=== PATIENT | male | born 1970 | race Caucasian/White ===

== ENCOUNTER 2017-02-26 15:27 | Inpatient (IN) ==
[2017-02-26] MEDS ORDERED: 0.9 % Sodium Chloride 1,000 ML IVC ONE (15:36)
[2017-02-26] MEDS ORDERED: Vancomycin 1,000 MG VIAL IVPB ONE (15:36)
[2017-02-26] MEDS ORDERED: Ampicillin/Sulbactam 3,000 MG in D5% in Water (Mini-Bag+) 100 ML IVPB ONE (15:36)
[2017-02-26] MEDS ORDERED: 0.9 % Sodium Chloride 500 ML IV.SOLN IVC ONE (15:43)
--- NOTE | 2017-02-26 15:58 | Emergency Department Note ---
Disposition Clinical Impression: Cellulitis of hand, Flexor tenosynovitis of thumb Disposition: Admitted As Inpatient Condition: Good [facility] Provider[facility] - Forms: ED Satisfaction Letter Time of Disposition: 18:47 Extremity Problem HPI - General Chief complaint: ED Extremity Problem,Nontraumatic Stated complaint: Left Hand Infection[facility] Time Seen by Provider: 02/26/17 15:31 Source: patient, EMS Mode of arrival: EMS Limitations: no limitations Nursing Notes Reviewed: Yes Vital Signs Reviewed: Yes - History of Present Illness HPI Narrative: Patient presents to the ED as a transfer from the [place] with a left hand infection. Patient reports that he cut the palmar aspect of his thumb on a old metal broom 4 days ago. He went into urgent care 2 days ago, got an antibiotic shot and was sent home. Since then and is rapidly progressed. Reports he went to the [place] clinic today, had labs drawn and was sent over here for surgical evaluation. He complains of fevers up to 102.5, nausea, intermittent vomiting, pain is mostly in his left hand and forearm, but is tracking up into his biceps. Also complains of diffuse abdominal pain but no difference than baseline. Does have a history of hep C, previous IV drug use with last use about 10 years ago. Pain Scale: 5 - Related Data Home Medications Medication Instructions Recorded Confirmed Buspirone HCl [Buspar] 15 mg PO TID 02/26/17 02/26/17 Carboxymethylcellulose Sodium 1 drop BOTH EYES TID 02/26/17 02/26/17 [Refresh Liquigel] Chlorhex Gl/Glycerin/He-Cell 6 gm TP AD 02/26/17 02/26/17 [Lubricating Jelly] Doxycycline Monohydrate [Avidoxy] 100 mg PO BID 02/26/17 02/26/17 Gabapentin [Neurontin] 900 mg PO TID 02/26/17 02/26/17 Levothyroxine [Synthroid] 50 mcg PO 0630 02/26/17 02/26/17 Lidocaine/Prilocaine CREAM [Emla] 1 appl TP QID PRN 02/26/17 Lisinopril [Zestril] 40 mg PO DAILY 02/26/17 02/26/17 Methadone 5 mg PO AD 02/26/17 02/26/17 Methylphenidate HCl [Ritalin] 10 mg PO 1200 02/26/17 02/26/17 Methylphenidate HCl [Ritalin] 20 mg PO QAM 02/26/17 02/26/17 Montelukast [Singulair] 10 mg PO DAILY 02/26/17 02/26/17 Mupirocin [Bactroban Oint] 1 appl TP TID 02/26/17 02/26/17 Naproxen [Naprosyn] 500 mg PO BID PRN 02/26/17 02/26/17 Lee/Poly/DEX Opth OINT [Maxitrol 1 appl OP AD 02/26/17 02/26/17 OPTH Oint] Omeprazole [PriLOSEC] 40 mg PO DAILY 02/26/17 02/26/17 Paroxetine [Paxil] 60 mg PO QAM 02/26/17 Pravastatin Sodium [Pravachol] 40 mg PO HS 02/26/17 02/26/17 Selenium Sulfide 1 appl TP DAILY 02/26/17 02/26/17 Sildenafil Citrate [Viagra] 50 mg PO AD PRN 02/26/17 02/26/17 Triamcinolone Acet 0.1% OINT 1 appl TP BID PRN 02/26/17 [Kenalog] clonazePAM [Klonopin] 0.5 mg PO BID 02/26/17 02/26/17 Allergies Allergy/AdvReac Type Severity Reaction Status Date / Time bupropion [From Wellbutrin] Allergy Hives Verified 02/26/17 15:36 Oxycodone Allergy Hives Verified 02/26/17 16:18 tramadol Allergy Hives Verified 02/26/17 15:36 All systems ED: reviewed and negative except as stated. Constitutional: Reports: fever, chills Cardiovascular: Denies: syncope Respiratory: Reports: dyspnea Gastrointestinal: Reports: abdominal pain, nausea, vomiting Musculoskeletal: Reports: as per HPI. Denies: back pain Integumentary: Reports: as per HPI Neurological: Reports: headache Past Medical History - Past Medical History Attestation: Yes The following information was validated with the patient. Source: patient Medical history: Reports: hepatitis Psychiatric history: Reports: no psych history - Social History Smoking Status: Current every day smoker Smokeless Tobacco Status: Yes (vapor) Alcohol use: Reports: none Drug use: Reports: none Physical Exam - General Limitations: no limitations General appearance: alert, in no apparent distress - Head Head exam: atraumatic, normocephalic, normal inspection - Eye Eye exam: Present: normal appearance, PERRL, EOMI - ENT ENT exam: normal exam, normal oropharynx, mucous membranes moist - Neck Neck exam: Present: normal inspection, full ROM, trachea midline - Chest Chest inspection: Present: normal inspection, symmetric chest wall rise - Respiratory Respiratory exam: Present: normal lung sounds bilaterally - Cardiovascular Cardiovascular exam: Present: regular rate, normal rhythm, normal heart sounds - Abdominal Exam Abdominal exam: Present: soft, Non-Tender, distention (But at baseline). Absent : tenderness, guarding, rebound, rigidity - Expanded Upper Extremity Exam Shoulder exam: Present: normal inspection, full ROM Arm exam: Present: normal inspection, full ROM Elbow exam: Present: normal inspection. Absent: full ROM (Slightly decreased in full extension due to pain in the antecubital fossa) Forearm/Wrist exam: Present: tenderness, swelling, erythema. Absent: normal inspection, tenderness over anatomical snuff box Hand exam: Present: tenderness, swelling, abrasion, erythema, other (Patient has significant swelling to the thenar eminence, erythema, induration, which is tracking up crossing the wrist and into the forearm. Patient has good flexion, extension, abduction, but has significant pain with wrist aDDuction. There is diffuse fusiform swelling of the left thumb, exquisite pain with passive range of motion. He is unable to bring his thumb to his index finger or pinky due to swelling and pain.). Absent: normal inspection, full ROM, crepitus Neuromotor exam: Normal: wrist extension, fingers 2-5 abduction. Abnorm: thumb opposition, thumb IP flexion, thumb adduction Vascular exam: Normal: capillary refill, radial pulse (Strong radial pulse and brisk cap refill) - Neurological Exam Neurological exam: Present: alert, oriented X3 - Psychiatric Psychiatric exam: Present: normal affect, normal mood - Skin Skin exam: Present: warm, dry. Absent: intact, normal color Course Course Narrative: 46-year-old male presenting with left hand infection, clinically he has a flexor tenosynovitis of his left hand and wrist. Consult the on-call orthopedic surgeon, Dr. Richardson. Agreed with our antibiotics of bank and Unasyn. We will keep the patient nothing by mouth. Also asked that we order a ESR and CRP. We will fluid resuscitate, as he does meet sepsis criteria at this time. He will be admitted to the hospitalist service once his CT imaging his back. Surgery will be consult for likely operative debridement Vital Signs Temperature 98 F 02/26/17 15:28 Pulse Rate 108 02/26/17 15:28 Respiratory Rate 22 02/26/17 15:28 Blood Pressure 133/68 02/26/17 15:28 O2 Sat by Pulse Oximetry 99 02/26/17 15:28 Temperature 98 F 02/26/17 15:28 Pulse Rate 98 02/26/17 17:14 Respiratory Rate 16 02/26/17 17:14 Blood Pressure 113/77 02/26/17 17:14 O2 Sat by Pulse Oximetry 100 02/26/17 17:14 Oxygen Delivery Oxygen Delivery Room Air Extremity Problem, Nontraumati - Medical Records Medical records reviewed: Yes I reviewed the patient's medical records. - Lab Data Lab results reviewed: Yes I reviewed the patient's lab results. Result diagrams: 02/26/17 16:03 02/26/17 16:03 Lab Results 02/26/17 02/26/17 02/26/17 Range/Units 16:03 16:03 16:03 WBC 13.5 H (4.3-11.1) K/mcL RBC 4.34 (4.19-5.50) M/mcL Hgb 13.4 (12.9-16.9) g/dL Hct 39.5 (37.5-50.1) % MCV 91.0 (83.0-100.0) fL MCH 30.9 (28.0-33.3) pg MCHC 33.9 (31.6-35.5) g/dL RDW 12.6 (11.5-14.5) % Plt Count 281 (140-400) K/mcL MPV 10.2 (9.4-12.4) fL Immature Gran % 0.5 (0-4) % Seg Neutrophils % 73.8 % Lymphocytes % 16.9 % Monocytes % 7.9 % Eosinophils % 0.7 % Basophils % 0.2 % Neutrophils # 9.9 H (1.6-8.9) K/mcL Lymphocytes # 2.3 (0.6-4.6) K/mcL Monocytes # 1.1 (0.0-1.3) K/mcL Eosinophils # 0.1 (0.0-0.6) K/mcL Basophils # 0.0 (0.0-0.2) K/mcL ESR 38 H (0-10) mm/hr Sodium 135 L (136-145) mEq/L Potassium 4.0 (3.5-4.5) mEq/L Chloride 104 (98-109) mEq/L Carbon Dioxide 24 (19-29) mEq/L BUN 22 (8-26) mg/dL Creatinine 0.90 (0.72-1.25) mg/dL Est GFR ( Amer) > 60 (> 60) Est GFR (Non-Af Amer) > 60 (> 60) BUN/Creatinine Ratio 24 (6-26) Glucose 126 H (70-99) mg/dL Calculated Osmolality 285 (280-300) Lactic Acid (0.5-2.2) mmol/L Calcium 9.1 (8.6-10.8) mg/dL C-Reactive Protein (Less than 5) mg/L 02/26/17 02/26/17 Range/Units 16:03 16:03 WBC (4.3-11.1) K/mcL RBC (4.19-5.50) M/mcL Hgb (12.9-16.9) g/dL Hct (37.5-50.1) % MCV (83.0-100.0) fL MCH (28.0-33.3) pg MCHC (31.6-35.5) g/dL RDW (11.5-14.5) % Plt Count (140-400) K/mcL MPV (9.4-12.4) fL Immature Gran % (0-4) % Seg Neutrophils % % Lymphocytes % % Monocytes % % Eosinophils % % Basophils % % Neutrophils # (1.6-8.9) K/mcL Lymphocytes # (0.6-4.6) K/mcL Monocytes # (0.0-1.3) K/mcL Eosinophils # (0.0-0.6) K/mcL Basophils # (0.0-0.2) K/mcL ESR (0-10) mm/hr Sodium (136-145) mEq/L Potassium (3.5-4.5) mEq/L Chloride (98-109) mEq/L Carbon Dioxide (19-29) mEq/L BUN (8-26) mg/dL Creatinine (0.72-1.25) mg/dL Est GFR ( Amer) (> 60) Est GFR (Non-Af Amer) (> 60) BUN/Creatinine Ratio (6-26) Glucose (70-99) mg/dL Calculated Osmolality (280-300) Lactic Acid 1.8 (0.5-2.2) mmol/L Calcium (8.6-10.8) mg/dL C-Reactive Protein 54 H (Less than 5) mg/L - Radiology Data Radiology results reviewed: Yes I reviewed the patient's radiology results. Upper Extremity CT 02/26/17 15:38 IMPRESSION: 1. Subcutaneous fat stranding of the distal forearm, wrist, and most pronounced in the 1st web space compatible cellulitis. No drainable fluid collection. 2. No acute osseous abnormality. D/ / Federico Farris MD / Federico Farris MD Interpreting Provider: Federico Farris MD S.Beverly - S.B.ALeydaRLeyda Situation: Demographics, MOA Background: Presenting Complaint, Relevant PMH, Meds, & Allergies Assessment: Vital Signs, Course and respsone to treatment, Exam Concerns, Patient/Family Expectation, Pertinant Lab Results, Outstanding Labs Recommendation: Barrier(s) to disposition, Recommendation based on pending studies, treatments, or consults S.B.A.RLeyda Report Given to: Dr. Da Silva accepts S.B.A.R. Repor Time: 18:47 Attestation Statement - Attestation Attestation: I examined this patient and my medical decision-making was reviewed with the Resident Physician. I agree with the documented findings, disposition and treatment plan as described except to the extent set forth below. Patient in the ED with left hand pain. Patient sustained a laceration from a metal portion of a broom on Saturday. Started getting red and inflamed yesterday. He went to urgent care and was placed on antibiotic. States now spreading up his arm. On exam he has erythema and swelling at the base of the left thumb over the thenar eminence. There appears to be a fluid collection as well. No crepitus. Erythema extending up into the forearm. Plan. Discussed with her hand. Patient without OR tonight. White count elevated. IV antibiotic and fluids. Will admit to medicine.
[2017-02-26] MEDS: *HR* HYDROmorphone (PF) 1 MG/ML SYRINGE IVP ONE ×2 (16:02→23:00)
[2017-02-26 16:28] LABS: BUN/Creatinine Ratio 24 (6-26); Blood Urea Nitrogen 22 mg/dL (8-26); Calcium 9.1 mg/dL (8.6-10.8); Carbon Dioxide 24 mEq/L (19-29); Chloride 104 mEq/L (98-109); Glucose 126 mg/dL (70-99); Osmolality,Calculated 285 (280-300); Sodium 135 mEq/L (136-145); eGFR For African Americans > 60 (> 60); eGFR For Non-African Americans > 60 (> 60)
[2017-02-26 16:34] LABS: Basophils % 0.2 %; Eosinophils # 0.1 K/mcL (0.0-0.6); Eosinophils % 0.7 %; Hematocrit 39.5 % (37.5-50.1); Hemoglobin 13.4 g/dL (12.9-16.9); Immature Granulocytes % 0.5 % (0-4); Lymphocytes # 2.3 K/mcL (0.6-4.6); Lymphocytes % 16.9 %; Mean Corpuscular HGB Conc 33.9 g/dL (31.6-35.5); Mean Corpuscular Hemoglobin 30.9 pg (28.0-33.3); Mean Platelet Volume 10.2 fL (9.4-12.4); Monocytes # 1.1 K/mcL (0.0-1.3); Monocytes % 7.9 %; Neutrophils # 9.9 K/mcL (1.6-8.9); Platelet Count 281 K/mcL (140-400); Red Blood Count 4.34 M/mcL (4.19-5.50); Red Cell Distribution Width 12.6 % (11.5-14.5); Segmented Neutrophils % 73.8 %
[2017-02-26] MEDS ORDERED: *HR* HYDROmorphone (PF) 1 MG/ML SYRINGE IVP ONE ×2 (17:08→18:54)
--- NOTE | 2017-02-26 19:44 | Orthopedic Consult Note ---
Date of Encounter: 02/26/17 Time of Encounter: 19:28 Assessment and Plan (1) Flexor tenosynovitis of thumb Current Visit: Yes Status: Acute Deep infection of the left thumb, presumably flexor tenosynovitis. I did discuss the diagnosis in detail with the patient and given the significance of the infection I recommendation was for operative incision, drainage, irrigation , and debridement of the left thumb and web space. He is currently admitted to the hospitalist and we will plan on surgery shortly. The risks discussed included but were not limited to stiffness, bleeding, infection, blood clots, damage to neurovascular structures, tendons, ligaments, and bone. Also discussed was the risk of continued symptoms and possible need for further procedures. I did discuss the anesthesia risks including stroke, heart attack, and . He may require multiple debridements to clear the infection. I did discuss the reasonable, foreseeable postoperative course with the patient and he did wish to proceed and consent will be obtained. He will likely require therapy for motion. History of Present Illness HPI: Mr. Moraes is a 46 year old male who was admitted due to a left thumb infection. He says that about 4 days ago he sustained an injury to the base of the left thumb after a metallic broomstick snapped in half and scraped the volar radial base of the left thumb as well as scratched the volar ring finger. He said that a couple of days later he began to develop a significant infection and went to an urgent care where he is placed on antibiotics. It is unclear which antibiotic he is given. Nevertheless the infection worsened and he was seen at the [place] clinic earlier today where he was transferred to our ER due to infection. Orthopedics was counseled that and he is admitted to the hospitalist. On my evaluation the patient complains of pain isolated to the volar base of the left thumb as well as the thenar eminence and dorsal first webspace. He denies any fevers, chills, or feelings of illness. He did apparently have a temperature of [address] though he has been afebrile here. He denies any other areas of infection. Of note he does say that he has a very rare skin condition which causes him to break out in small ulcerative- type lesions throughout his entire body. He is not able to tell me the name of the diagnosis. Past Med Surg Social Fam HX - Past Medical History Medical history: hepatitis Psychiatric history: no psych history - Social History Smoking Status: Current every day smoker Smokeless Tobacco Status: Yes (vapor) Alcohol use: none Drug use: none Medications and Allergies Buspirone HCl [Buspar] 15 mg PO TID 02/26/17 [History] Carboxymethylcellulose Sodium [Refresh Liquigel] 1 drop BOTH EYES TID 02/26/17 [ History] Chlorhex Gl/Glycerin/He-Cell [Lubricating Jelly] 6 gm TP AD 02/26/17 [History] Doxycycline Monohydrate [Avidoxy] 100 mg PO BID 02/26/17 [History] Gabapentin [Neurontin] 900 mg PO TID 02/26/17 [History] Levothyroxine [Synthroid] 50 mcg PO 0602/26/17 [History] Lidocaine/Prilocaine CREAM [Emla] 1 appl TP QID PRN 02/26/17 [History] Lisinopril [Zestril] 40 mg PO DAILY 02/26/17 [History] Methadone 5 mg PO AD 02/26/17 [History] Methylphenidate HCl [Ritalin] 10 mg PO 1200 02/26/17 [History] Methylphenidate HCl [Ritalin] 20 mg PO QAM 02/26/17 [History] Montelukast [Singulair] 10 mg PO DAILY 02/26/17 [History] Mupirocin [Bactroban Oint] 1 appl TP TID 02/26/17 [History] Naproxen [Naprosyn] 500 mg PO BID PRN 02/26/17 [History] Lee/Poly/DEX Opth OINT [Maxitrol OPTH Oint] 1 appl OP AD 02/26/17 [History] Omeprazole [PriLOSEC] 40 mg PO DAILY 02/26/17 [History] Paroxetine [Paxil] 60 mg PO QAM 02/26/17 [History] Pravastatin Sodium [Pravachol] 40 mg PO HS 02/26/17 [History] Selenium Sulfide 1 appl TP DAILY 02/26/17 [History] Sildenafil Citrate [Viagra] 50 mg PO AD PRN 02/26/17 [History] Triamcinolone Acet 0.1% OINT [Kenalog] 1 appl TP BID PRN 02/26/17 [History] clonazePAM [Klonopin] 0.5 mg PO BID 02/26/17 [History] 3 Allergy/AdvReac Type Severity Reaction Status Date / Time bupropion [From Wellbutrin] Allergy Hives Verified 02/26/17 15:36 Oxycodone Allergy Hives Verified 02/26/17 16:18 tramadol Allergy Hives Verified 02/26/17 15:36 All Systems Reviewed: Constitutional and musculoskeletal systems were reviewed and are negative unless otherwise stated in history of present illness. Physical Exam - Constitutional Vitals: Temp Pulse Resp BP Pulse Ox 98 F 98 16 130/79 100 02/26/17 15:28 02/26/17 17:14 02/26/17 19:18 02/26/17 19:18 02/26/17 17:14 CONSTITUTIONAL -Vitals reviewed -The patient is well developed, well nourished, well groomed PSYCHIATRIC -Fully alert and oriented x 3 -Pleasant mood LEFT UPPER EXTREMITY Inspection shows that the skin and the soft tissue envelope are intact with the exception of a 1 cm oblique laceration over the volar and ulnar aspect of the thumb which is draining grossly purulent material. There is a moderate amount of swelling of the thumb including the volar and dorsal first webspace. There is cellulitis in this area which does not extend proximal to the thenar eminence. There is however a small streak in the volar forearm. There is diffuse tenderness to palpation over the thumb mostly volarly, but also in the first dorsal webspace associated with induration. No fluctuance is palpated. No other lesions or redness is noted. He is nontender about the other digits and nontender about the forearm and wrist. Full motion of the shoulder elbow and wrist. He could grossly flex and extend the noninvolved digits. He can grossly flex and extend the thumb though there is limitation due to pain and swelling. The fingertips are all grossly sensate and well-perfused, and the radial artery pulse is 2+. Diagnostic Imaging: I did personally review and interpret the CT ordered by the emergency department which does not show any subcutaneous gas or drainable abscesses. There is significant cellulitic change in the first webspace and thumb. Results - Labs Result Diagrams: 02/26/17 16:03 02/26/17 16:03 Labs: Abnormal lab results WBC 13.5 K/mcL (4.3-11.1) H 02/26/17 16:03 Neutrophils # 9.9 K/mcL (1.6-8.9) H 02/26/17 16:03 ESR 38 mm/hr (0-10) H 02/26/17 16:03 Sodium 135 mEq/L (136-145) L 02/26/17 16:03 Glucose 126 mg/dL (70-99) H 02/26/17 16:03 C-Reactive Protein 54 mg/L (Less than 5) H 02/26/17 16:03 All other labs normal. Consult Discharge Plan - Plan [facility]errals: [facility] [Primary Care Provider[facility] -
[2017-02-26] MEDS ORDERED: *HR* Propofol 200 MG/20 ML VIAL IVP ONE ×3 (20:48→21:38)
[2017-02-26] MEDS ORDERED: *HR* HYDROmorphone 2 MG/ML SYRINGE ONE (20:48)
[2017-02-26] MEDS ORDERED: Lidocaine -MPF 2% 2 ML VIAL ONE (20:50)
[2017-02-26] MEDS ORDERED: *HR* Succinylcholine 200 MG/10 ML VIAL IVP ONE (20:51)
[2017-02-26] MEDS ORDERED: *HR* FentaNYL (PF) 100 MCG/2 ML VIAL ONE (20:52)
[2017-02-26] MEDS ORDERED: *HR* Midazolam HCl 2 MG/2 ML VIAL ONE (20:52)
[2017-02-26] MEDS ORDERED: Bupivacaine/EPI 1:200k 0.5%PF 10 ML VIAL ONE (21:00)
[2017-02-26] MEDS ORDERED: Ringers Solution, Lactated 1,000 ML ONE (21:05)
--- NOTE | 2017-02-26 21:32 | Anesthesia Evaluation PreOp ---
Date of Encounter: 02/26/17 Time of Encounter: 21:30 - Past History Planned Operation: Left thumb I&D Cardiac History: HTN Pulmonary History: Smoker (vapes), MINESH Dx (possibly) [employer] History: Other (hx drug addiction; has been clean for 11 years) Other Medical History: Hepatic (Hep C) Anesthesia History: No Prior Anesthetic Complications (never underwent anesthesia previously) Alcohol Use: none Drug use: none Medications and Allergies Buspirone HCl [Buspar] 15 mg PO TID 02/26/17 [History] Carboxymethylcellulose Sodium [Refresh Liquigel] 1 drop BOTH EYES TID 02/26/17 [ History] Chlorhex Gl/Glycerin/He-Cell [Lubricating Jelly] 6 gm TP AD 02/26/17 [History] Doxycycline Monohydrate [Avidoxy] 100 mg PO BID 02/26/17 [History] Gabapentin [Neurontin] 900 mg PO TID 02/26/17 [History] Levothyroxine [Synthroid] 50 mcg PO 0630 02/26/17 [History] Lidocaine/Prilocaine CREAM [Emla] 1 appl TP QID PRN 02/26/17 [History] Lisinopril [Zestril] 40 mg PO DAILY 02/26/17 [History] Methadone 5 mg PO AD 02/26/17 [History] Methylphenidate HCl [Ritalin] 10 mg PO 1200 02/26/17 [History] Methylphenidate HCl [Ritalin] 20 mg PO QAM 02/26/17 [History] Montelukast [Singulair] 10 mg PO DAILY 02/26/17 [History] Mupirocin [Bactroban Oint] 1 appl TP TID 02/26/17 [History] Naproxen [Naprosyn] 500 mg PO BID PRN 02/26/17 [History] Lee/Poly/DEX Opth OINT [Maxitrol OPTH Oint] 1 appl OP AD 02/26/17 [History] Omeprazole [PriLOSEC] 40 mg PO DAILY 02/26/17 [History] Paroxetine [Paxil] 60 mg PO QAM 02/26/17 [History] Pravastatin Sodium [Pravachol] 40 mg PO HS 02/26/17 [History] Selenium Sulfide 1 appl TP DAILY 02/26/17 [History] Sildenafil Citrate [Viagra] 50 mg PO AD PRN 02/26/17 [History] Triamcinolone Acet 0.1% OINT [Kenalog] 1 appl TP BID PRN 02/26/17 [History] clonazePAM [Klonopin] 0.5 mg PO BID 02/26/17 [History] 3 Allergy/AdvReac Type Severity Reaction Status Date / Time bupropion [From Wellbutrin] Allergy Hives Verified 02/26/17 15:36 Oxycodone Allergy Hives Verified 02/26/17 16:18 tramadol Allergy Hives Verified 02/26/17 15:36 - Meds/Allergy Pre-op Review Medications Reviewed: Yes Allergies Reviewed: Yes Beta Blockers on Current Med List: No Anesthesia Results - Labs 02/26/17 16:03 02/26/17 16:03 Anesthesia Exam Last Vital Signs Temp 98 F 02/26/17 15:28 Pulse 98 02/26/17 17:14 Resp 16 02/26/17 19:18 BP 130/79 02/26/17 19:18 Pulse Ox 100 02/26/17 17:14 Weight: 122 kg - HEENT Pupil (Motor): Pupils equal, EOMI Mallampati: III Teeth: Poor dentition Oral Opening: Greater than 3 - [employer] LOC: Oriented - Cardiac Rhythm: Regular Murmur: None - Pulmonary Breath Sounds: bilateral Clear Respiratory Effort: Symmetrical Anesthesia Assess/Plan ASA Score: 3 Modified Alissa Scale for Level of Consciousness: Cooperative, oriented, and tranquil Anesthetic Plan: General Monitoring Plan: Standard Monitors Recovery Plan: PACU
[2017-02-26] MEDS ORDERED: Vancomycin 2,000 MG in D5% in Water 500 ML IVPB ONE (22:00)
[2017-02-26] MEDS ORDERED: *HR* Promethazine 25 MG/ML VIAL IVP PRN (22:27)
[2017-02-26] MEDS ORDERED: Naloxone 0.4 MG/ML INJ IVP PRN (22:37)
[2017-02-26] MEDS ORDERED: Dexamethasone 4 MG/ML VIAL ONE (22:41)
[2017-02-26] MEDS ORDERED: Ondansetron 4 MG/2 ML VIAL ONE (22:41)
--- NOTE | 2017-02-26 22:47 | Orthopedic Operative Note ---
Date of procedure: 02/26/17 Procedure: OPERATIVE REPORT DATE OF PROCEDURE: 02/26/2017 SURGEON: Sascha Richardson MD TURBINATED BONE GRINDER(S): There were no assistants PREOPERATIVE DIAGNOSIS: Left thumb and first webspace infection POSTOPERATIVE DIAGNOSIS: Left thumb and first webspace infection PROCEDURE: Incision, drainage, irrigation, and debridement of the left thumb and first webspace ANESTHESIA: Gen. anesthesia PREOPERATIVE ANTIBIOTICS: Held for intraoperative cultures, though one dose of Unasyn was given in the emergency department ESTIMATED BLOOD LOSS: 5 milliliters TOURNIQUET TIME: 14 minutes at 250 mmHg SPECIMENS: Deep cultures from the first webspace sent for aerobic and anaerobic IMPLANTS: No implants PREOPERATIVE NOTE AND INDICATIONS: This patient is a 46-year-old male infection to the left thumb and first webspace. Treatment options were discussed and the recommendation was for incision, drainage, irrigation, and debridement in order to assist in clearing the infection. The surgical plan was discussed with the patient. The risks, benefits, alternatives, and potential complications of this procedure were discussed with the patient including injury to veins, arteries, nerves, tendons, ligaments, and bone. Also discussed were the risks of infection, bleeding, pain, blood clots, the possible need for a blood transfusion, the possible need for further procedures, heart attack, stroke, and . Additional risks include the need for further debridements. All of this was explained in simple terms, and the patient verbalized understanding and wished to proceed. Consent was given to proceed with surgery. PROCEDURE: The patient was seen in the preoperative holding area where the identify and the consent were confirmed. The left hand was marked. Final questions were answered. The patient was brought back to the operating room and placed supine on the operating room table. A huddle was performed with the patient and all vital surgical team members confirming patient identity, the correct procedure, and the correct operative site. General anesthesia was administered. The left upper extremity was prepped and draped in the usual sterile fashion. A surgical time out was performed immediately preceding the incision with all personnel in the operating room to confirm patient identity, the correct operative site and extremity, correct radiographic studies, availability of appropriate surgical equipment, and agreement on the planned procedure. The tourniquet was inflated without exsanguination. Desquamated epidermis was removed from around the draining wound at the ulnar volar base of the left thumb. This did show about a 1 cm area of actively purulent drainage. This was swabbed for both aerobic and anaerobic cultures. It was extended both dorsally over the first webspace and volarly in Angel fashion over the first webspace and thumb base by a few centimeters in each direction. Dissection proceeded through the subcutaneous tissue carefully both dorsally and volarly in the first web space was opened. The adductor pollicis was identified and found to be intact. The ulnar sided neurovascular bundle to the thumb was identified and found to be intact as well. Copious amounts of purulent drainage were drained from the first webspace and this was copiously irrigated using 3 L of saline. A small amount of necrotic fat was also debrided. Once all the purulence was drained and the first webspace was cleansed and free from devitalized tissue, the flexor tendon sheath of the thumb was identified just distal to the A1 shereen and a small window was opened and there was no gross purulence within the flexor tendon sheath. The tourniquet was deflated and there were no significant bleeders. The wound was irrigated once again with another 3 L of saline and this was packed open using quarter-inch iodoform gauze packing and a soft dressing was applied. The instrument, sponge, and needle counts were correct after wound closure. POST OPERATIVE PLAN: Weight Bearing: Weightbearing as tolerated through the palm of the left hand DVT Prophylaxis: Ambulation Activity: Avoid aggressive activities with the left upper extremity. Wound Care: Daily dressing and packing changes Perioperative antibiotic prophylaxis: Vancomycin and Zosyn until cultures elucidated Anticipate second look I&D later this week
[2017-02-26] MEDS ORDERED: *HR* HYDROmorphone (PF) 1 MG/ML SYRINGE ONE (22:50)
[2017-02-26] MEDS: *HR* HYDROmorphone (PF) 1 MG/ML SYRINGE IVP PRN ×3 (22:50→23:05)
[2017-02-26] MEDS ORDERED: Acetaminophen IV 1,000 MG/100 ML INFUS..BTL IVPB ONE (22:51)
[2017-02-26] MEDS ORDERED: Ketorolac 30 MG/ML VIAL IVP ONE (22:51)
[2017-02-26] MEDS ORDERED: Acetaminophen IV 1,000 MG/100 ML INFUS..BTL ONE (22:59)
[2017-02-26] MEDS ORDERED: Vancomycin 1,750 MG in D5% in Water 250 ML IVPB SCH (23:00)
--- NOTE | 2017-02-26 23:25 | Anesthesia Evaluation Post Op ---
Date of Encounter: 02/26/17 Time of Encounter: 23:25 - Vital Signs Vital Signs: Last Vital Signs Temp 98.2 F 02/26/17 23:14 Pulse 106 02/26/17 23:14 Resp 16 02/26/17 23:14 BP 99/59 02/26/17 23:14 Pulse Ox 95 02/26/17 23:14 - Lungs Lungs: Clear Ascult./Percussion - Airway Airway: Non-obstructed - Cardiovascular Regular Rate - Mental Status Mental Status: Alert & Oriented, Answers Appropriately - Pain Pain Scale: 5 - Nausea Vomiting Nausea Vomiting: Not Present - Hydration Hydration: NPO - Discharge PostOp Status: Transfer Patient to floor
[2017-02-27] MEDS ORDERED: Naloxone 0.4 MG/ML INJ IVP PRN (00:19)
[2017-02-27] MEDS ORDERED: Acetaminophen 325 MG TABLET PO PRN (00:19)
[2017-02-27] MEDS ORDERED: *HR* HYDROmorphone (PF) 1 MG/ML SYRINGE IVP PRN (00:19)
[2017-02-27] MEDS: Ringers Solution, Lactated 1,000 ML IVC SCH ×3 (00:27→05:07)
[2017-02-27] MEDS ORDERED: 0.9 % Sodium Chloride 1,000 ML IVC SCH (00:30)
[2017-02-27] MEDS: Ketorolac 30 MG/ML VIAL IVP PRN ×3 (01:19→21:06)
[2017-02-27] MEDS: Piperacillin/Tazobactam 3.375 GM in D5% in Water (Mini-Bag+) 100 ML IVPB SCH ×3 (01:19→16:34)
[2017-02-27] MEDS: *HR* Heparin 5,000 UNIT/ML VIAL SQ SCH ×2 (04:49→16:33)
--- NOTE | 2017-02-27 05:04 | Internal Med History&Physical ---
Date of Encounter: 02/26/17 Time of Encounter: 23:35 Assessment and Plan (1) DVT prophylaxis Current visit: Yes Status: Acute Heparin subcutaneously (2) Cellulitis of hand Current visit: Yes Status: Acute Had debridement. Continue antibiotic with Zosyn. Follow wound culture results (3) Flexor tenosynovitis of thumb Current visit: Yes Status: Acute Management as above Internal Medicine - H&P: HPI Chief complaint: Left hand pain after injury Admitted From: Home Plans for Post Hospital Care: Home History of present illness: Mr. Moraes is a 46 year old male with history of hepatitis C present to ER for left hand pain, swelling. Patient had hand injury on Saturday, suspect foreign body in tissue (metal). He went to urgent care and was given some medication ( unknown name). Patient did develop a fever yesterday, temperature 102.3. He has been nausea and vomiting as well. Patient came to emergency room today. CT shows no foreign body but severe cellulitis. Orthopedic consult was called and the patient was brought to OR for debridement. I saw patient when he came back from operating room. Patient denies chest pain or shortness of breath. Past Med Surg Social Fam HX - Past Medical History Medical history: COPD, GERD, hepatitis, hypertension, thyroid disease Psychiatric history: anxiety - Past Surgical History Surgical History: non-contributory - Social History Smoking Status: Current every day smoker Smokeless Tobacco Status: Yes (vapor) Alcohol use: none Drug use: none - Family History Mother Adopted: Yes (patient adopted at 2 days old) Internal Medicine - H&P: Meds Buspirone HCl [Buspar] 15 mg PO TID 02/26/17 [History] Carboxymethylcellulose Sodium [Refresh Liquigel] 1 drop BOTH EYES TID 02/26/17 [ History] Chlorhex Gl/Glycerin/He-Cell [Lubricating Jelly] 6 gm TP AD 02/26/17 [History] Doxycycline Monohydrate [Avidoxy] 100 mg PO BID 02/26/17 [History] Gabapentin [Neurontin] 900 mg PO TID 02/26/17 [History] Levothyroxine [Synthroid] 50 mcg PO 0630 02/26/17 [History] Lidocaine/Prilocaine CREAM [Emla] 1 appl TP QID PRN 02/26/17 [History] Lisinopril [Zestril] 40 mg PO DAILY 02/26/17 [History] Methadone 5 mg PO AD 02/26/17 [History] Methylphenidate HCl [Ritalin] 10 mg PO 1200 02/26/17 [History] Methylphenidate HCl [Ritalin] 20 mg PO QAM 02/26/17 [History] Montelukast [Singulair] 10 mg PO DAILY 02/26/17 [History] Mupirocin [Bactroban Oint] 1 appl TP TID 02/26/17 [History] Naproxen [Naprosyn] 500 mg PO BID PRN 02/26/17 [History] Lee/Poly/DEX Opth OINT [Maxitrol OPTH Oint] 1 appl OP AD 02/26/17 [History] Omeprazole [PriLOSEC] 40 mg PO DAILY 02/26/17 [History] Paroxetine [Paxil] 60 mg PO QAM 02/26/17 [History] Pravastatin Sodium [Pravachol] 40 mg PO HS 02/26/17 [History] Selenium Sulfide 1 appl TP DAILY 02/26/17 [History] Sildenafil Citrate [Viagra] 50 mg PO AD PRN 02/26/17 [History] Triamcinolone Acet 0.1% OINT [Kenalog] 1 appl TP BID PRN 02/26/17 [History] clonazePAM [Klonopin] 0.5 mg PO BID 02/26/17 [History] 3 Allergy/AdvReac Type Severity Reaction Status Date / Time bupropion [From Wellbutrin] Allergy Hives Verified 02/26/17 15:36 Oxycodone Allergy Hives Verified 02/26/17 16:18 tramadol Allergy Hives Verified 02/26/17 15:36 All Systems PM: A 10-system review of systems was performed and is negative for pertinent findings except as documented above in the HPI. - Constitutional Vitals: Temp Pulse Resp BP Pulse Ox 98.3 F 97 21 113/72 96 02/27/17 04:02 02/27/17 04:02 02/27/17 04:02 02/27/17 04:02 02/27/17 04:02 General appearance: Present: A&O X 3, no acute distress, answers questions appropriately - Head Head exam: Present: atraumatic, normocephalic - Eye Eye exam: Present: PERRL, conjuntiva pink, sclera anicteric Pupils: Present: PERRL - Neck Neck exam general surgery: Present: supple, trachea midline. Absent: lymphadenopathy - Respiratory Respiratory exam: Present: CTAB. Absent: accessory muscle use, rales, rhonchi, wheezes - Cardiovascular Cardiovascular exam: Present: RRR, +S1, +S2. Absent: diastolic murmur, gallop, rubs, systolic murmur - GI/Abdominal GI/Abdominal exam: Present: normal bowel sounds, soft, no peritoneal signs. Absent: distended, tenderness - Extremities Exam Extremities exam: Present: warm, radial pulses palpable and symmetrical. Absent : calf tenderness, cyanotic, pedal edema Additional comments: Left hand swelling, skin redness, S/P debridement. - Neurological Exam Neurological exam: Present: CN II-XII intact, oriented X3, no focal deficits. Absent: pronater drift, facial droop, speech deficit - Skin Skin exam: Present: dry, intact Internal Med - H&P Results - Labs CBC & Chem 7: 02/26/17 16:03 02/26/17 16:03
[2017-02-27] MEDS ORDERED: [UNRECOGNIZED DRUG - SUPPLY] TP PRN (05:30)
[2017-02-27 06:54] LABS: Hemoglobin 12.7 g/dL (12.9-16.9); Mean Corpuscular HGB Conc 34.3 g/dL (31.6-35.5); Mean Corpuscular Hemoglobin 31.4 pg (28.0-33.3); Mean Corpuscular Volume 91.4 fL (83.0-100.0); Mean Platelet Volume 10.4 fL (9.4-12.4); Platelet Count 265 K/mcL (140-400); Red Blood Count 4.05 M/mcL (4.19-5.50); Red Cell Distribution Width 12.5 % (11.5-14.5)
[2017-02-27 07:06] LABS: BUN/Creatinine Ratio 19 (6-26); Blood Urea Nitrogen 20 mg/dL (8-26); Calcium 9.1 mg/dL (8.6-10.8); Carbon Dioxide 26 mEq/L (19-29); Chloride 102 mEq/L (98-109); Glucose 187 mg/dL (70-99); Osmolality,Calculated 288 (280-300); Potassium 4.6 mEq/L (3.5-4.5); Sodium 135 mEq/L (136-145); eGFR For African Americans > 60 (> 60); eGFR For Non-African Americans > 60 (> 60)
[2017-02-27] MEDS: Gabapentin 300 MG CAPSULE PO SCH ×3 (08:21→20:41)
[2017-02-27] MEDS: *HR* Methadone 5 MG TABLET PO SCH ×2 (08:21→20:41)
[2017-02-27] MEDS: Artificial Tears SOLN 15 ML BOTTLE BOTH EYES SCH ×3 (08:37→20:45)
--- NOTE | 2017-02-27 09:53 | Internal Med Progress Note ---
<Aundrea De La Garza - Last Filed: 02/27/17 18:09> Date of Encounter: 02/27/17 Time of Encounter: 18:47 - Assessment and plan (1) Sepsis Current Visit: Yes Status: Acute Assessment and plan: MAXIMUM TEMPERATURE has been 100.7F but is currently 98.8F. patient has been tachycardic up to 110 bpm but currently has a heart rate of 72. Blood pressure is normotensive. Therefore patient's vitals are trending towards normal. Patient has an identified source of infection which has been debrided and irrigated by Dr. Wallace yesterday. Cultures are pending. Patient is currently on vancomycin 1500mg every 12 hours and Zosyn 3.375 every 8 hours. Plan: - Continue Antibiotics: Vancomycine and Zosyn - Cultures are pending - Continue to monitor Vitals Qualifiers: Sepsis type: sepsis due to unspecified organism Qualified Code(s): A41.9 - Sepsis, unspecified organism (2) Cellulitis of hand Current Visit: Yes Status: Acute Assessment and plan: CT scan showed cellulitis of the left inner webbing of the first digit. Patient was taken to the OR last night for debridement and irrigation with Dr. Wlalace from [facility]. Wound was irrigated and packed. Dr. Wallace will probably repeat incision and drainage later this week. Last tetanus was 2012. Plan: - Antibiotics: Vancomycine and Zosyn - Orthopedics following - Wound cultures pending - daily dressing changes (3) Flexor tenosynovitis of thumb Current Visit: Yes Status: Acute Assessment and plan: See cellulitis of hand discussion. (4) DVT prophylaxis Current Visit: Yes Status: Acute Assessment and plan: Heparin (5) Hypothyroidism Current Visit: Yes Status: Chronic Assessment and plan: No current symptoms. Continue on home medication of Synthroid 50 mg by mouth daily. (6) Anxiety and depression Current Visit: Yes Status: Chronic Assessment and plan: Continue on home dose of Buspirone and Paxil. (7) ADHD Current Visit: Yes Status: Chronic Assessment and plan: Continue on home dose of Ritalin (8) GERD (gastroesophageal reflux disease) Current Visit: Yes Status: Chronic Assessment and plan: Continue on home dose of omeprazole. (9) HTN (hypertension) Current Visit: Yes Status: Acute Assessment and plan: Continue on home dose of lisinopril and simvastatin - Subjective Interval history: Aj is a 38-year-old male presented to the ED for left hand laceration and was found to have cellulitis of the webbing of his first digit was admitted for debridement and irrigation and is status post debridement day 1. Today patient is feeling better as his pain is decreased and he is not tender along the vein in his forearm like he was yesterday. Patient says his pain is only in his hand. Patient denies chest pain, shortness of breath. - Constitutional Vitals: Temp Pulse Resp BP Pulse Ox 98.8 F 110 18 114/62 96 02/27/17 07:04 02/27/17 07:04 02/27/17 07:04 02/27/17 07:04 02/27/17 07:04 General appearance: Present: A&O X 3, no acute distress, answers questions appropriately Exam: Constitutional: Alert, in no acute distress, well nourished, well developed. Head: Normocephalic, atraumatic, normal contour and symmetric, no masses, lesions or scars Heart: tachycardic regular rhythm, no murmurs Lungs: Clear to auscultation, no wheezes, rales, or rhonchi Abdomen: Soft, nondistended, nontender, and no masses palpable, bowel sounds present and normal, no guarding or rigidity. Extremities: L first digit wound in the interdigit web on volar and ulnar aspect of thumb packed and open with clean dressing and draining serous, pink tinged fluids, sensation intact of all fingers and able to extend and flex all digits with capillary refill less than 2 seconds at distal aspect of 1st and second digit, redness and swelling of first and second digit, mild pinkness streak extending up volar aspect of forearm, no cyanosis, radial pulse +2/4, no clubbing Skin: Multiple ulcers in different stages along trunk and lower extremities lesions are without drainage of pus and are healing well, Skin warm and dry, no jaundice Neurologic: Cranial nerves II through XII grossly intact, no focal deficits, strength within normal limits in all extremities Psych: Cooperative with exam, good eye contact, cognitive function intact, judgment good insight good, speech clear, thought process logical, and goal directed Internal Medicine: Result - Labs CBC & Chem 7: 02/27/17 06:46 02/27/17 06:46 Labs: Short CBC 02/27/17 Range/Units 06:46 WBC 14.7 H (4.3-11.1) K/mcL Hgb 12.7 L (12.9-16.9) g/dL Hct 37.0 L (37.5-50.1) % Plt Count 265 (140-400) K/mcL [facility] 02/27/17 06:46 Sodium 135 L Potassium 4.6 H Chloride 102 Carbon Dioxide 26 BUN 20 Creatinine 1.08 Glucose 187 H Calcium 9.1 - VTE Documentation of Mechanical Device: Intermittent pneumatic compression device Consult Discharge Plan - Plan [facility]errals: [facility]Primary Care Provider[facility] - <Ryder Nuñez T - Last Filed: 02/27/17 19:26> Date of Encounter: 02/27/17 - Constitutional Vitals: Temp Pulse Resp BP Pulse Ox 98.4 F 72 18 118/72 98 02/27/17 16:36 02/27/17 16:36 02/27/17 16:36 02/27/17 16:50 02/27/17 16:36 Internal Medicine: Result - Labs CBC & Chem 7: 02/27/17 06:46 02/27/17 06:46 Labs: Short CBC 02/27/17 Range/Units 06:46 WBC 14.7 H (4.3-11.1) K/mcL Hgb 12.7 L (12.9-16.9) g/dL Hct 37.0 L (37.5-50.1) % Plt Count 265 (140-400) K/mcL [facility] 02/27/17 06:46 Sodium 135 L Potassium 4.6 H Chloride 102 Carbon Dioxide 26 BUN 20 Creatinine 1.08 Glucose 187 H Calcium 9.1 - Attending Attestation I have independently seen and examined this patient on 02/27/17, reviewed the EMR and discussed plan of care with the patient and resident physician 46 M with opiate dependence, Anxiety, ADHD, hs of IVDA, admitted and being managed for L hand cellulitis with abscess and L tenosynovitis s/p I and D by ortho Seen and evaluated at bedside, no new complains, ambulatory Physical exam: Diffuse papular rash on trunk-chronic per patient, obese, Chest is CTAB, Lhand dressing clean and dry with good perfusion. Labs and Imaging reviewed Plan is to contact [facility] for culture report, follow culture here, continue current meds, Vanco and Zosyn, continue same, de-escalate with culture report, monitor CBC, last febrile episode 02/26 on admission 100.7. Rest of details as in resident physicians documentation
[2017-02-27] MEDS: Methylphenidate HCl 10 MG TABLET PO SCH ×2 (10:09→16:32)
[2017-02-27] MEDS: clonazePAM 0.5 MG TABLET PO SCH ×2 (11:15→20:44)
[2017-02-27] MEDS: Lisinopril 20 MG TABLET PO SCH (11:18)
[2017-02-27 11:32] LABS: Hemoglobin A1C 5.4 %
[2017-02-27] MEDS: Vancomycin 1,500 MG in D5% in Water 250 ML IVPB SCH (12:25)
[2017-02-27] MEDS: *HR* HYDROmorphone (PF) 1 MG/ML SYRINGE IVP PRN ×2 (12:39→20:45)
--- NOTE | 2017-02-27 14:05 | Orthopedics Progress Note ---
Date of Encounter: 02/27/17 Time of Encounter: 14:01 - Assessment and Plan (1) Flexor tenosynovitis of thumb Current Visit: Yes Status: Acute Subjective Interval history: S: The patient indicates that his left hand feels dramatically better. He is very pleased with his results so far. No feelings of illness. Pain is well- controlled with medication. O: Afebrile and his vital signs are stable. The dressing is changed and the packing pulled. No purulent drainage. The wound bed looks good without any devitalized tissue. I cannot express any purulence. Mild improvement of his swelling. Significant improvement of the erythema in the webspace and thenar eminence. The streaking is also significantly improved. The patient can actively flex and extend all digits, extend the thumb, cross the index and long fingers, make an okay sign, and oppose the thumb. The fingertips are all grossly sensate and well-perfused, and the radial artery pulse is 2+. OR cultures are pending. A: Post I&D of the left thumb and web space, doing well P: Continue broad-spectrum antibiotics for now, currently on vancomycin and Zosyn. Elevation of the left upper extremity to decrease swelling Oral or IV anti-inflammatories per the primary team Anticipate second look washout and possible wound closure on Saturday. Objective Vital signs: Vital Signs Temp Pulse Resp BP Pulse Ox 02/27/17 11:14 97.9 F 108 16 115/70 97 02/27/17 07:04 98.8 F 110 18 114/62 96 02/27/17 04:02 98.3 F 97 21 113/72 96 02/27/17 00:47 97.9 F 104 17 130/77 97 02/27/17 00:30 97.9 F 95 16 131/85 96 02/26/17 23:57 98.7 F 95 21 113/81 93 02/26/17 23:24 100 16 95 02/26/17 23:14 98.2 F 106 16 99/59 95 02/26/17 23:04 109 18 106/76 95 02/26/17 22:54 106 16 110/73 97 02/26/17 22:44 100.7 F H 110 16 133/52 98 02/26/17 19:18 16 130/79 Intake and Output 08/02/27/17 02/27/17 23:59 07:59 15:59 Intake Total 1200 / 1200 2100 / 2100 1400 / 1400 Output Total 1949 1950 200 / 200 Balance 1195 / 1195 150 / 150 1200 / 1200 Intake: IV Fluids 1200 / 1200 2100 / 2100 600 / 600 0.9 % Sodium Chloride 1, 1000 / 1000 000 ML @ 3750 mls/hr IVC .Q16M [facility] Rx#:[id number] Lactated Ringers 1,000 ML 2000 / 2000 @ 100 mls/hr IVC .Q10H [facility] Rx#:[id number] Ofirmev 1,000 mg/100 ml 1 100 / 100 ,000 mg In 100 ml @ 400 mls/hr IVPB ONCE ONE Rx#: [id number] Unasyn 3,000 MG In 100 / 100 Dextrose 5% (Minibag+) 100 ML 100 ML @ 200 mls/ hr IVPB ONCE ONE Rx#: [id number] Zosyn 3.375 GM In 100 / 100 100 / 100 Dextrose 5% (Minibag+) 100 ML 100 ML @ 25 mls/hr IVPB Q8HR [facility] Rx#: [id number] Vancocin 2,000 MG In 500 / 500 Dextrose 5% 500 ML @ 250 mls/hr IVPB ONCE ONE Rx#: [id number] Oral 800 / 800 Output: Urine 1949 / 1950 200 / 200 Estimated Blood Loss Other: Meal Breakfast Percent of Meal Consumed 100% # Voids 1 # Bowel Movements 1 Weight 125 kg Blood Glucose* 136 - Labs CBC & BMP: 02/27/17 06:46 02/27/17 06:46 Labs: Abnormal lab results WBC 14.7 K/mcL (4.3-11.1) H 02/27/17 06:46 RBC 4.05 M/mcL (4.19-5.50) L 02/27/17 06:46 Hgb 12.7 g/dL (12.9-16.9) L 02/27/17 06:46 Hct 37.0 % (37.5-50.1) L 02/27/17 06:46 Neutrophils # 9.9 K/mcL (1.6-8.9) H 02/26/17 16:03 ESR 38 mm/hr (0-10) H 02/26/17 16:03 Sodium 135 mEq/L (136-145) L 02/27/17 06:46 Potassium 4.6 mEq/L (3.5-4.5) H 02/27/17 06:46 Glucose 187 mg/dL (70-99) H 02/27/17 06:46 POC Glucose 136 (58-89) H 02/27/17 00:15 C-Reactive Protein 54 mg/L (Less than 5) H 02/26/17 16:03 - VTE Documentation of Mechanical Device: Intermittent pneumatic compression device Consult Discharge Plan - Plan [facility]errals: [facility] [Primary Care Provider] -
[2017-02-28] MEDS: Piperacillin/Tazobactam 3.375 GM in D5% in Water (Mini-Bag+) 100 ML IVPB SCH ×4 (00:07→23:13)
[2017-02-28] MEDS: Vancomycin 1,500 MG in D5% in Water 250 ML IVPB SCH ×3 (00:08→23:13)
[2017-02-28] MEDS: *HR* HYDROmorphone (PF) 1 MG/ML SYRINGE IVP PRN ×4 (02:29→20:03)
[2017-02-28] MEDS: *HR* Heparin 5,000 UNIT/ML VIAL SQ SCH ×2 (06:12→17:35)
[2017-02-28 07:02] LABS: Basophils % 0.3 %; Eosinophils % 0.1 %; Hematocrit 36.2 % (37.5-50.1); Hemoglobin 11.6 g/dL (12.9-16.9); Immature Platelets 7.5 % (1.1-6.1); Lymphocytes # 2.8 K/mcL (0.6-4.6); Lymphocytes % 17.9 %; Mean Corpuscular Hemoglobin 30.7 pg (28.0-33.3); Mean Corpuscular Volume 95.8 fL (83.0-100.0); Mean Platelet Volume 10.5 fL (9.4-12.4); Monocytes # 1.7 K/mcL (0.0-1.3); Monocytes % 10.9 %; Platelet Count 297 K/mcL (140-400); Red Blood Count 3.78 M/mcL (4.19-5.50); Red Cell Distribution Width 12.6 % (11.5-14.5); Segmented Neutrophils % 69.8 %
[2017-02-28 07:25] LABS: BUN/Creatinine Ratio 21 (6-26); Blood Urea Nitrogen 21 mg/dL (8-26); Calcium 8.9 mg/dL (8.6-10.8); Carbon Dioxide 28 mEq/L (19-29); Chloride 106 mEq/L (98-109); Glucose 131 mg/dL (70-99); Osmolality,Calculated 299 (280-300); Potassium 4.7 mEq/L (3.5-4.5); eGFR For African Americans > 60 (> 60); eGFR For Non-African Americans > 60 (> 60)
[2017-02-28 07:38] LABS: Sodium 142 mEq/L (136-145)
[2017-02-28] MEDS: Gabapentin 300 MG CAPSULE PO SCH ×3 (08:55→20:04)
[2017-02-28] MEDS: Artificial Tears SOLN 15 ML BOTTLE BOTH EYES SCH ×3 (08:56→20:08)
[2017-02-28] MEDS: clonazePAM 0.5 MG TABLET PO SCH ×2 (08:56→20:08)
[2017-02-28] MEDS: Lisinopril 20 MG TABLET PO SCH (08:58)
[2017-02-28] MEDS: Methylphenidate HCl 10 MG TABLET PO SCH ×2 (09:54→12:15)
[2017-02-28] MEDS: *HR* OxyCODONE Immed Rel 5 MG TABLET PO PRN ×3 (10:02→22:21)
--- NOTE | 2017-02-28 16:13 | Internal Med Progress Note ---
<Aundrea De La Garza - Last Filed: 02/28/17 16:11> Date of Encounter: 02/28/17 Time of Encounter: 16:11 - Assessment and plan (1) Sepsis Current Visit: Yes Status: Acute Assessment and plan: Patient has been afebrile for the last 24 hours and has had normotensive for the last 12 hours. Patient was hypotensive with multiple systolic pressures in the 90s overnight though. Patient has an identified source of infection which has been debrided and irrigated by Dr. Wallace 2 days ago. Cultures are still pending[facility]. Patient is currently on vancomycin 1500mg every 12 hours and Zosyn 3.375 every 8 hours. Plan: - Continue Antibiotics: Vancomycine and Zosyn - Cultures are pending - Continue to monitor Vitals Qualifiers: Sepsis type: sepsis due to unspecified organism Qualified Code(s): A41.9 - Sepsis, unspecified organism (2) Cellulitis of hand Current Visit: Yes Status: Acute Assessment and plan: CT scan showed cellulitis of the left inner webbing of the first digit. Patient s/p day 2 of initial debridement, irrigation, and packing with Dr. Wallace from [facility]. Per patient Dr. Wallace will probalby irrigate and close wound tomorrow. Last tetanus was 2012. Plan: - Antibiotics: Vancomycine and Zosyn - Orthopedics following - Wound cultures pending - daily dressing changes - Oxycodone 5mg Q6H for pain - home Methadone is held due to being on Oxycodone (3) Flexor tenosynovitis of thumb Current Visit: Yes Status: Acute Assessment and plan: See cellulitis of hand comments above. (4) Hypothyroidism Current Visit: Yes Status: Chronic Assessment and plan: No current symptoms. Continue on home medication of Synthroid 50 mg by mouth daily. Qualifiers: Qualified Code(s): E03.9 - Hypothyroidism, unspecified (5) Anxiety and depression Current Visit: Yes Status: Chronic Assessment and plan: Continue on home dose of Buspirone and Paxil. (6) ADHD Current Visit: Yes Status: Chronic Assessment and plan: Continue on home dose of Ritalin Qualifiers: Qualified Code(s): F90.9 - Attention-deficit hyperactivity disorder, unspecified type (7) HTN (hypertension) Current Visit: Yes Status: Acute Assessment and plan: Continue on home dose of lisinopril and simvastatin Qualifiers: Hypertension type: unspecified Qualified Code(s): I10 - Essential (primary ) hypertension (8) DVT prophylaxis Current Visit: Yes Status: Acute Assessment and plan: Heparin (9) GERD (gastroesophageal reflux disease) Current Visit: Yes Status: Chronic Assessment and plan: Continue on home dose of omeprazole. Qualifiers: Esophagitis presence: without esophagitis Qualified Code(s): K21.9 - Gastro -esophageal reflux disease without esophagitis - Subjective Interval history: Aj is a 38-year-old male presented to the ED for left hand laceration and was found to have cellulitis of the webbing of his first digit was admitted for debridement and irrigation and is status post debridement day 2. Today patient is feeling better as his pain is even more decreased and he has noticed the streaking is completely gone. Patient initially complained of constipation but resolved later in the morning without medical intervention. Patient denies chest pain, shortness of breath. - Constitutional Vitals: Temp Pulse Resp BP Pulse Ox 97.5 F L 86 16 128/84 100 02/28/17 16:08 02/28/17 16:08 02/28/17 16:08 02/28/17 16:08 02/28/17 16:08 General appearance: Present: A&O X 3, no acute distress, answers questions appropriately Exam: Constitutional: Alert, in no acute distress, well nourished, well developed. Head: Normocephalic, atraumatic, normal contour and symmetric, no masses, lesions or scars Heart: regular rate and rhythm, no murmurs Lungs: Clear to auscultation, no wheezes, rales, or rhonchi Abdomen: Soft, nondistended, nontender, and no masses palpable, bowel sounds present and normal, no guarding or rigidity. Extremities: L first digit wound in the interdigit web on volar and ulnar aspect of thumb packed and open with clean dressing and draining serous, pink tinged fluids, sensation intact of all fingers and able to extend and flex all digits and make the "OK" sign with his thumb and second digit, capillary refill less than 2 seconds at distal aspect of 1st and second digit, redness and swelling of first and second digit but decreased from yesterday, absent streaking on forearm, no cyanosis, radial pulse +2/4, no clubbing Skin: Multiple ulcers in different stages along trunk and lower extremities lesions are without drainage of pus and are healing well, Skin warm and dry, no jaundice Neurologic: Cranial nerves II through XII grossly intact, no focal deficits, strength within normal limits in all extremities Psych: Cooperative with exam, good eye contact, cognitive function intact, judgment good insight good, speech clear, thought process logical, and goal directed Internal Medicine: Result - Labs CBC & Chem 7: 02/28/17 06:09 02/28/17 06:09 Labs: Short CBC 02/28/17 Range/Units 06:09 WBC 15.7 H (4.3-11.1) K/mcL Hgb 11.6 L (12.9-16.9) g/dL Hct 36.2 L (37.5-50.1) % Plt Count 297 (140-400) K/mcL Neutrophils # 11.0 H (1.6-8.9) K/mcL BMP 02/28/17 06:09 Sodium 142 D Potassium 4.7 H Chloride 106 Carbon Dioxide 28 BUN 21 Creatinine 1.01 Glucose 131 H Calcium 8.9 - VTE Documentation of Mechanical Device: Intermittent pneumatic compression device Consult Discharge Plan - Plan [facility]errals: [facility]Primary Care Provider[facility] - <Ryder Nuñez - Last Filed: 02/28/17 18:03> Date of Encounter: 02/28/17 - Constitutional Vitals: Temp Pulse Resp BP Pulse Ox 97.5 F L 86 16 128/84 100 02/28/17 16:08 02/28/17 16:08 02/28/17 16:08 02/28/17 16:08 02/28/17 16:08 Internal Medicine: Result - Labs CBC & Chem 7: 02/28/17 06:09 02/28/17 06:09 Labs: Short CBC 02/28/17 Range/Units 06:09 WBC 15.7 H (4.3-11.1) K/mcL Hgb 11.6 L (12.9-16.9) g/dL Hct 36.2 L (37.5-50.1) % Plt Count 297 (140-400) K/mcL Neutrophils # 11.0 H (1.6-8.9) K/mcL BMP 02/28/17 06:09 Sodium 142 D Potassium 4.7 H Chloride 106 Carbon Dioxide 28 BUN 21 Creatinine 1.01 Glucose 131 H Calcium 8.9 - Attending Attestation I have independently seen and examined this patient on 02/28. I have reviewed his EMR and discussed plan of care with the resident, the patient 46 M with opiate dependence, Anxiety, ADHD, xs of IVDA, admitted and being managed for sepsis secondary to L hand cellulitis with abscess and L tenosynovitis s/p I and D by ortho Seen and evaluated at bedside, no new complains, ambulatory Physical exam: Diffuse papular rash on trunk-chronic per patient, obese, Chest is CTAB, Lhand dressing clean and dry with good perfusion. Labs and Imaging reviewed A/P: Sepsis secondary to L hand cellulitis with abscess. Continue vanco and Zosyn till culture reports, hold methadone, continue dilaudid. Per ortho, patient is for wound closure / a.m. Continue other management. Rest of details as in resident physicians documentation
--- NOTE | 2017-02-28 16:56 | Orthopedics Progress Note ---
Date of Encounter: 02/28/17 Time of Encounter: 16:55 - Assessment and Plan (1) Flexor tenosynovitis of thumb Current Visit: Yes Status: Acute Deep infection of the left thumb, presumably flexor tenosynovitis. I did discuss the diagnosis in detail with the patient and given the significance of the infection I recommendation was for operative incision, drainage, irrigation , and debridement of the left thumb and web space. He is currently admitted to the hospitalist and we will plan on surgery shortly. The risks discussed included but were not limited to stiffness, bleeding, infection, blood clots, damage to neurovascular structures, tendons, ligaments, and bone. Also discussed was the risk of continued symptoms and possible need for further procedures. I did discuss the anesthesia risks including stroke, heart attack, and . He may require multiple debridements to clear the infection. I did discuss the reasonable, foreseeable postoperative course with the patient and he did wish to proceed and consent will be obtained. He will likely require therapy for motion. Subjective Interval history: S: Continued improvement of the left hand after I&D, with expected postoperative pain which is well-controlled. O: Afebrile and his vital signs are stable. The dressing is changed and the packing pulled. No purulent drainage. The wound bed looks good without any devitalized tissue. I cannot express any purulence. Mild improvement of his swelling. Resolution of erythema.. The streaking is also significantly improved. The patient can actively flex and extend all digits, extend the thumb, cross the index and long fingers, make an okay sign, and oppose the thumb. The fingertips are all grossly sensate and well-perfused, and the radial artery pulse is 2+. OR cultures are pending. A: Post I&D of the left thumb and web space, doing well P: Continue broad-spectrum antibiotics for now, currently on vancomycin and Zosyn. Elevation of the left upper extremity to decrease swelling Oral or IV anti-inflammatories per the primary team To OR tomorrow for second look I&D and likely loose wound closure over drain. Objective Vital signs: Vital Signs Temp Pulse Resp BP Pulse Ox 02/28/17 16:08 97.5 F L 86 16 128/84 100 02/28/17 11:48 98 F 95 16 129/91 97 02/28/17 07:31 97.8 F 73 16 115/76 100 02/28/17 04:59 98.4 F 81 18 112/72 95 02/28/17 00:02 98.4 F 91 18 92/63 97 02/27/17 19:35 99.1 F 94 19 126/73 96 Intake and Output 02/28/17 02/28/17 02/28/17 07:59 15:59 23:59 Intake Total 1550 / 1550 240 / 240 100 / 100 Balance 1550 / 1550 240 / 240 100 / 100 Intake: IV Fluids 350 / 350 100 / 100 Zosyn 3.375 GM In 100 / 100 100 / 100 Dextrose 5% (Minibag+) 100 ML 100 ML @ 25 mls/hr IVPB Q8HR [facility] Rx#: [id number] Vancocin 1,500 MG In 250 / 250 Dextrose 5% 250 ML @ 166. 667 mls/hr IVPB Q12H [facility] Rx#:[id number] Oral 1200 / 1200 240 / 240 Other: Meal Lunch Percent of Meal Consumed 100% # Voids 4 - Labs CBC & BMP: 02/28/17 06:09 02/28/17 06:09 Labs: Abnormal lab results WBC 15.7 K/mcL (4.3-11.1) H 02/28/17 06:09 RBC 3.78 M/mcL (4.19-5.50) L 02/28/17 06:09 Hgb 11.6 g/dL (12.9-16.9) L 02/28/17 06:09 Hct 36.2 % (37.5-50.1) L 02/28/17 06:09 Neutrophils # 11.0 K/mcL (1.6-8.9) H 02/28/17 06:09 Monocytes # 1.7 K/mcL (0.0-1.3) H 02/28/17 06:09 Immature Plt Fraction 7.5 % (1.1-6.1) H 02/28/17 06:09 ESR 38 mm/hr (0-10) H 02/26/17 16:03 Potassium 4.7 mEq/L (3.5-4.5) H 02/28/17 06:09 Glucose 131 mg/dL (70-99) H 02/28/17 06:09 POC Glucose 136 (58-89) H 02/27/17 00:15 C-Reactive Protein 54 mg/L (Less than 5) H 02/26/17 16:03 - VTE Documentation of Mechanical Device: Intermittent pneumatic compression device Consult Discharge Plan - Plan [facility]errals: [facility] [Primary Care Provider] -
--- NOTE | 2017-02-28 21:19 | Anesthesia Evaluation PreOp ---
Date of Encounter: 02/28/17 Time of Encounter: 21:17 - Past History Planned Operation: Left hand I&D Cardiac History: HTN Pulmonary History: Smoker (vapes), MINESH Dx (possibly) [employer] History: Other (hx drug addiction; has been clean for 11 years) Other Medical History: Hepatic (Hep C) Anesthesia History: No Prior Anesthetic Complications Alcohol Use: none Drug use: none Medications and Allergies Buspirone HCl [Buspar] 15 mg PO TID 02/26/17 [History] Carboxymethylcellulose Sodium [Refresh Liquigel] 1 drop BOTH EYES TID 02/26/17 [ History] Chlorhex Gl/Glycerin/He-Cell [Lubricating Jelly] 6 gm TP AD 02/26/17 [History] Doxycycline Monohydrate [Avidoxy] 100 mg PO BID 02/26/17 [History] Gabapentin [Neurontin] 900 mg PO TID 02/26/17 [History] Levothyroxine [Synthroid] 50 mcg PO 0630 02/26/17 [History] Lidocaine/Prilocaine CREAM [Emla] 1 appl TP QID PRN 02/26/17 [History] Lisinopril [Zestril] 40 mg PO DAILY 02/26/17 [History] Methadone 5 mg PO AD 02/26/17 [History] Methylphenidate HCl [Ritalin] 10 mg PO 1200 02/26/17 [History] Methylphenidate HCl [Ritalin] 20 mg PO QAM 02/26/17 [History] Montelukast [Singulair] 10 mg PO DAILY 02/26/17 [History] Mupirocin [Bactroban Oint] 1 appl TP TID 02/26/17 [History] Naproxen [Naprosyn] 500 mg PO BID PRN 02/26/17 [History] Lee/Poly/DEX Opth OINT [Maxitrol OPTH Oint] 1 appl OP AD 02/26/17 [History] Omeprazole [PriLOSEC] 40 mg PO DAILY 02/26/17 [History] Paroxetine [Paxil] 60 mg PO QAM 02/26/17 [History] Pravastatin Sodium [Pravachol] 40 mg PO HS 02/26/17 [History] Selenium Sulfide 1 appl TP DAILY 02/26/17 [History] Sildenafil Citrate [Viagra] 50 mg PO AD PRN 02/26/17 [History] Triamcinolone Acet 0.1% OINT [Kenalog] 1 appl TP BID PRN 02/26/17 [History] clonazePAM [Klonopin] 0.5 mg PO BID 02/26/17 [History] 3 Allergy/AdvReac Type Severity Reaction Status Date / Time buprenorphine Allergy See Verified 02/28/17 21:19 Comments bupropion [From Wellbutrin] Allergy Hives Verified 02/26/17 15:36 Oxycodone Allergy Hives Verified 02/27/17 12:27 tramadol Allergy Hives Verified 02/26/17 15:36 - Meds/Allergy Pre-op Review Medications Reviewed: Yes Allergies Reviewed: Yes Beta Blockers on Current Med List: No Anesthesia Results - Labs 02/28/17 06:09 02/28/17 06:09 Anesthesia Exam Last Vital Signs Temp 98.6 F 02/28/17 19:03 Pulse 69 02/28/17 19:03 Resp 16 02/28/17 19:03 BP 122/78 02/28/17 19:03 Pulse Ox 99 02/28/17 19:03 Weight: 125 kg - HEENT Pupil (Motor): Pupils equal, EOMI Mallampati: III Teeth: Poor dentition Oral Opening: Greater than 3 - [employer] LOC: Oriented [employer] Motor: Normal RUE, Normal LUE, Normal RLE, Normal LLE, Normal Face - Cardiac Rhythm: Regular Murmur: None - Pulmonary Breath Sounds: bilateral Clear Respiratory Effort: Symmetrical Anesthesia Assess/Plan ASA Score: 3 Modified Bonita Scale for Level of Consciousness: Cooperative, oriented, and tranquil Anesthetic Plan: General Monitoring Plan: Standard Monitors Recovery Plan: PACU
[2017-03-01] MEDS: *HR* HYDROmorphone (PF) 1 MG/ML SYRINGE IVP PRN ×5 (01:57→22:26)
[2017-03-01] MEDS: Ketorolac 30 MG/ML VIAL IVP PRN (04:12)
[2017-03-01] MEDS: *HR* Heparin 5,000 UNIT/ML VIAL SQ SCH ×2 (05:07→17:50)
[2017-03-01 06:31] LABS: Hematocrit 39.6 % (37.5-50.1); Mean Corpuscular HGB Conc 33.3 g/dL (31.6-35.5); Mean Corpuscular Hemoglobin 30.7 pg (28.0-33.3); Mean Corpuscular Volume 92.1 fL (83.0-100.0); Mean Platelet Volume 10.4 fL (9.4-12.4); Platelet Count 328 K/mcL (140-400); Red Cell Distribution Width 12.6 % (11.5-14.5)
[2017-03-01 06:32] LABS: Hemoglobin 13.2 g/dL (12.9-16.9)
[2017-03-01 06:44] LABS: BUN/Creatinine Ratio 16 (6-26); Blood Urea Nitrogen 16 mg/dL (8-26); Calcium 8.5 mg/dL (8.6-10.8); Carbon Dioxide 24 mEq/L (19-29); Chloride 107 mEq/L (98-109); Glucose 145 mg/dL (70-99); Osmolality,Calculated 292 (280-300); Sodium 139 mEq/L (136-145); eGFR For African Americans > 60 (> 60); eGFR For Non-African Americans > 60 (> 60)
[2017-03-01 06:48] LABS: Potassium 4.9 mEq/L (3.5-4.5)
[2017-03-01] MEDS: Piperacillin/Tazobactam 3.375 GM in D5% in Water (Mini-Bag+) 100 ML IVPB SCH ×2 (08:57→17:49)
[2017-03-01] MEDS: Artificial Tears SOLN 15 ML BOTTLE BOTH EYES SCH ×3 (09:07→20:27)
[2017-03-01] MEDS: Gabapentin 300 MG CAPSULE PO SCH ×3 (09:08→20:26)
[2017-03-01] MEDS: Methylphenidate HCl 10 MG TABLET PO SCH ×2 (09:08→11:09)
[2017-03-01] MEDS: Lisinopril 20 MG TABLET PO SCH (09:08)
[2017-03-01] MEDS: clonazePAM 0.5 MG TABLET PO SCH ×2 (09:09→20:26)
[2017-03-01] MEDS: *HR* OxyCODONE Immed Rel 5 MG TABLET PO PRN ×2 (11:08→20:26)
[2017-03-01] MEDS ORDERED: Aminoglycoside Consult 1 EACH MC ONE (12:50)
[2017-03-01] MEDS ORDERED: *HR* Midazolam HCl 2 MG/2 ML VIAL ONE ×2 (14:41→15:11)
[2017-03-01] MEDS ORDERED: *HR* FentaNYL (PF) 100 MCG/2 ML VIAL ONE ×2 (14:41→15:11)
[2017-03-01] MEDS ORDERED: *HR* Propofol 200 MG/20 ML VIAL IVP ONE ×2 (14:41→15:11)
[2017-03-01] MEDS ORDERED: Lidocaine -MPF 2% 2 ML VIAL ONE ×2 (14:42→15:11)
[2017-03-01] MEDS ORDERED: Ondansetron 4 MG/2 ML VIAL ONE (15:11)
[2017-03-01] MEDS ORDERED: Bupivacaine/EPI 1:200k 0.5%PF 10 ML VIAL ONE (15:11)
[2017-03-01] MEDS ORDERED: Dexamethasone 4 MG/ML VIAL ONE (15:11)
--- NOTE | 2017-03-01 15:27 | Orthopedics Progress Note ---
Date of Encounter: 03/01/17 Time of Encounter: 15:25 - Assessment and Plan (1) Flexor tenosynovitis of thumb Current Visit: Yes Status: Acute Subjective Interval history: S: Expected postoperative pain which is well-controlled. O: Afebrile and his vital signs are stable. The base of the wound has healthy appearing tissue. No gross purulence. Erythema has resolved over the thumb and hand area. Expected tenderness. The patient can actively flex and extend all digits, extend the thumb, cross the index and long fingers, make an okay sign, and oppose the thumb. The fingertips are all grossly sensate and well-perfused, and the radial artery pulse is 2+. OR cultures are presumptively growing streptococcus. A: Post I&D of the left thumb and web space, doing well P: Continue broad-spectrum antibiotics per the ID team. Elevation of the left upper extremity to decrease swelling Oral or IV anti-inflammatories per the primary team To OR today for 2nd look washout and possible loose wound closure over drain. Objective Vital signs: Vital Signs Temp Pulse Resp BP Pulse Ox 03/01/17 11:43 98.7 F 85 18 108/73 96 03/01/17 07:23 98.2 F 76 17 119/78 98 03/01/17 05:06 98.4 F 80 17 102/72 97 03/01/17 00:42 98.5 F 83 17 126/74 96 02/28/17 19:03 98.6 F 69 16 122/78 99 02/28/17 16:08 97.5 F L 86 16 128/84 100 Intake and Output 02/28/17 03/01/17 03/01/17 23:59 07:59 15:59 Intake Total 690 / 690 100 / 100 100 / 100 Balance 690 / 690 100 / 100 100 / 100 Intake: IV Fluids 450 / 450 100 / 100 100 / 100 Zosyn 3.375 GM In 200 / 200 100 / 100 100 / 100 Dextrose 5% (Minibag+) 100 ML 100 ML @ 25 mls/hr IVPB Q8HR [facility] Rx#: [id number] Vancocin 1,500 MG In 250 / 250 Dextrose 5% 250 ML @ 166. 667 mls/hr IVPB Q12H [facility] Rx#:[id number] Oral 240 / 240 Other: Meal Dinner Percent of Meal Consumed 100% # Voids 1 1 Blood Glucose* 118 - Labs CBC & BMP: 03/01/17 06:18 03/01/17 06:18 Labs: Abnormal lab results Neutrophils # 11.0 K/mcL (1.6-8.9) H 02/28/17 06:09 Monocytes # 1.7 K/mcL (0.0-1.3) H 02/28/17 06:09 Immature Plt Fraction 7.5 % (1.1-6.1) H 02/28/17 06:09 ESR 38 mm/hr (0-10) H 02/26/17 16:03 Potassium 4.9 mEq/L (3.5-4.5) H 03/01/17 06:18 Glucose 145 mg/dL (70-99) H 03/01/17 06:18 POC Glucose 118 (58-89) H 02/28/17 21:12 Calcium 8.5 mg/dL (8.6-10.8) L 03/01/17 06:18 C-Reactive Protein 54 mg/L (Less than 5) H 02/26/17 16:03 - VTE Documentation of Mechanical Device: Intermittent pneumatic compression device Consult Discharge Plan - Plan [facility]errals: [facility] [Primary Care Provider] -
--- NOTE | 2017-03-01 15:34 | Internal Med Progress Note ---
<Aundrea De La Garza - Last Filed: 03/01/17 15:32> Date of Encounter: 03/01/17 Time of Encounter: 15:32 - Assessment and plan (1) Sepsis Current Visit: Yes Status: Acute Assessment and plan: Patient has been afebrile for the last 24 hours and has had normotensive for the last 12 hours. Patient was hypotensive with multiple systolic pressures in the 90s overnight though. Patient has an identified source of infection which has been debrided and irrigated by Dr. Wallace 3 days ago but plans to reirrigate and possibly close today. Wound culture shows positive cocci. Vanco was stopped. Zosyn was continued. Plan: - Antibiotics: Zosyn - Discontinue Vanco - Cultures gram postive cocci, still awaiting sensitivities tomorrow - Continue to monitor vitals - surgery today with irrigation and closure Dispo: Possible discharge home tomorrow if sensitivities come back and surgery goes as planned. Qualifiers: Sepsis type: sepsis due to unspecified organism Qualified Code(s): A41.9 - Sepsis, unspecified organism (2) Cellulitis of hand Current Visit: Yes Status: Acute Assessment and plan: CT scan showed cellulitis of the left inner webbing of the first digit over area of laceration Patient s/p day 3 of initial debridement, irrigation, and packing with Dr. Wallace from [facility]. Per patient Dr. Wallace is taking him to surgery at 3PM for irrigation and closure. Last tetanus was 2012. Plan: - Antibiotics: Zosyn, d/c Vanco - Orthopedics following - Wound culture positive cocci - daily dressing changes - Oxycodone 5mg Q6H for pain - home Methadone is held due to being on Oxycodone (3) Flexor tenosynovitis of thumb Current Visit: Yes Status: Acute Assessment and plan: See cellulitis of hand comments above. (4) Hypothyroidism Current Visit: Yes Status: Chronic Assessment and plan: No current symptoms. Continue on home medication of Synthroid 50 mg by mouth daily. Qualifiers: Qualified Code(s): E03.9 - Hypothyroidism, unspecified (5) Anxiety and depression Current Visit: Yes Status: Chronic Assessment and plan: Continue on home dose of Buspirone and Paxil. (6) ADHD Current Visit: Yes Status: Chronic Assessment and plan: Continue on home dose of Ritalin Qualifiers: Qualified Code(s): F90.9 - Attention-deficit hyperactivity disorder, unspecified type (7) HTN (hypertension) Current Visit: Yes Status: Acute Assessment and plan: Continue on home dose of lisinopril and simvastatin Qualifiers: Hypertension type: unspecified Qualified Code(s): I10 - Essential (primary ) hypertension (8) DVT prophylaxis Current Visit: Yes Status: Acute Assessment and plan: Heparin (9) GERD (gastroesophageal reflux disease) Current Visit: Yes Status: Chronic Qualifiers: Esophagitis presence: without esophagitis Qualified Code(s): K21.9 - Gastro -esophageal reflux disease without esophagitis - Subjective Interval history: Aj is a 38-year-old male presented to the ED for left hand laceration and was found to have cellulitis of the webbing of his first digit was admitted for debridement and irrigation and is status post debridement day 2. Patient says the pain and tenderness is decreased today. He says he will be going to surgery around 3 for irrigation and possible loose closure. Patient denies chest pain, shortness of breath. - Constitutional Vitals: Temp Pulse Resp BP Pulse Ox 98.7 F 85 18 108/73 96 03/01/17 11:43 03/01/17 11:43 03/01/17 11:43 03/01/17 11:43 03/01/17 11:43 General appearance: Present: A&O X 3, no acute distress, answers questions appropriately Exam: Constitutional: Alert, in no acute distress, well nourished, well developed. Head: Normocephalic, atraumatic, normal contour and symmetric, no masses, lesions or scars Heart: regular rate and rhythm, no murmurs Lungs: Clear to auscultation, no wheezes, rales, or rhonchi Abdomen: Soft, nondistended, nontender, and no masses palpable, bowel sounds present and normal, no guarding or rigidity. Extremities: L first digit wound in the interdigit web on volar and ulnar aspect of thumb packed and open with clean dressing and draining serous, pink tinged fluids, sensation intact of all fingers and able to extend and flex all digits and make the "OK" sign with his thumb and second digit, capillary refill less than 2 seconds at distal aspect of 1st and second digit, redness and swelling of first and second digit decreased significantly from yesterday, tenderness at thenar eminence decreased, absent streaking on forearm, no cyanosis, radial pulse +2/4, no clubbing Skin: Multiple ulcers in different stages along trunk and lower extremities lesions are without drainage of pus and are healing well, Skin warm and dry, no jaundice Neurologic: Cranial nerves II through XII grossly intact, no focal deficits, strength within normal limits in all extremities Psych: Cooperative with exam, good eye contact, cognitive function intact, judgment good insight good, speech clear, thought process logical, and goal directed Internal Medicine: Result - Labs CBC & Chem 7: 03/01/17 06:18 03/01/17 06:18 Labs: Short CBC 03/01/17 Range/Units 06:18 WBC 11.1 (4.3-11.1) K/mcL Hgb 13.2 D (12.9-16.9) g/dL Hct 39.6 (37.5-50.1) % Plt Count 328 (140-400) K/mcL [facility] 03/01/17 06:18 Sodium 139 Potassium 4.9 H Chloride 107 Carbon Dioxide 24 BUN 16 Creatinine 0.97 Glucose 145 H Calcium 8.5 L - VTE Documentation of Mechanical Device: Intermittent pneumatic compression device Consult Discharge Plan - Plan [facility]errals: [facility] [Primary Care Provider] - <Ryder Nuñez - Last Filed: 03/01/17 16:08> Date of Encounter: 03/01/17 - Constitutional Vitals: Temp Pulse Resp BP Pulse Ox 98.7 F 85 18 108/73 96 03/01/17 11:43 03/01/17 11:43 03/01/17 11:43 03/01/17 11:43 03/01/17 11:43 Internal Medicine: Result - Labs CBC & Chem 7: 03/01/17 06:18 03/01/17 06:18 Labs: Short CBC 03/01/17 Range/Units 06:18 WBC 11.1 (4.3-11.1) K/mcL Hgb 13.2 D (12.9-16.9) g/dL Hct 39.6 (37.5-50.1) % Plt Count 328 (140-400) K/mcL [facility] 03/01/17 06:18 Sodium 139 Potassium 4.9 H Chloride 107 Carbon Dioxide 24 BUN 16 Creatinine 0.97 Glucose 145 H Calcium 8.5 L - Attending Attestation I have independently seen and examined this patient on 03/01/17. I have reviewed his EMR and discussed plan of care with the resident, the patient 46 M with opiate dependence, Anxiety, ADHD, xs of IVDA, admitted and being managed for L hand cellulitis with abscess and L tenosynovitis s/p I and D by ortho Seen and evaluated at bedside, no new complains, ambulatory Physical exam: Diffuse papular rash on trunk-chronic per patient, obese, Chest is CTAB, Lhand dressing clean and dry with good perfusion. Labs and Imaging reviewed: Leukocytosis resolved, chem WNL, Wound culture with GPC, presumed to be strep Discontinue vanco, continue Zosyn till final culture reports, Continue other management, for surgery today, orthopedics is following Rest of details as in resident physicians documentation
[2017-03-01] MEDS ORDERED: *HR* Promethazine 25 MG/ML VIAL IVP PRN (16:47)
[2017-03-01] MEDS ORDERED: Albuterol 2.5 MG/3 ML NEBULIZER IH ONE (16:47)
[2017-03-01] MEDS ORDERED: *HR* HYDROmorphone (PF) 1 MG/ML SYRINGE IVP PRN (16:47)
--- NOTE | 2017-03-01 17:00 | Orthopedic Operative Note ---
Date of procedure: 03/01/17 Procedure: OPERATIVE REPORT DATE OF PROCEDURE: 03/01/2017 SURGEON: Sascha Richardson MD ROCKET TEST FIRE WORKER(S): There were no assistants PREOPERATIVE DIAGNOSIS: Left thumb and first web space infection POSTOPERATIVE DIAGNOSIS: Same PROCEDURE: Second look irrigation and debridement of the left thumb and first webspace with partial wound closure ANESTHESIA: General anesthesia PREOPERATIVE ANTIBIOTICS: Receiving vancomycin and Zosyn on the floor ESTIMATED BLOOD LOSS: 2 milliliters TOURNIQUET TIME: 7 minutes at 250 mmHg SPECIMENS: There were no specimens IMPLANTS: There were no implants PREOPERATIVE NOTE AND INDICATIONS: This patient is a 46-year-old male who earlier this week underwent an incision and drainage procedure of his left thumb and first webspace or deep infection. He has improved greatly with IV antibiotics and the recommendation was for second look I&D with possible wound closure in order to continue infection treatment and hopefully reapproximate the wound edges for a quicker wound healing. The surgical plan was discussed with the patient. The risks, benefits, alternatives, and potential complications of this procedure were discussed with the patient including injury to veins, arteries, nerves, tendons, ligaments, and bone. Also discussed were the risks of infection, bleeding, pain, blood clots, the possible need for a blood transfusion, the possible need for further procedures, heart attack, stroke, and . Additional risks include persistent infection. All of this was explained in simple terms, and the patient verbalized understanding and wished to proceed. Consent was given to proceed with surgery. PROCEDURE: The patient was seen in the preoperative holding area where the identify and the consent were confirmed. The left hand was marked. Final questions were answered. The patient was brought back to the operating room and placed supine on the operating room table. A huddle was performed with the patient and all vital surgical team members confirming patient identity, the correct procedure, and the correct operative site. Gen. anesthesia was administered. The . Upper extremity was prepped and draped in the usual sterile fashion. A surgical time out was performed immediately preceding the incision with all personnel in the operating room to confirm patient identity, the correct operative site and extremity, correct radiographic studies, availability of appropriate surgical equipment, and agreement on the planned procedure. The tourniquet was inflated. The wound was explored and there is no devitalized tissue. No persistent infection was identified. 3 L of saline were irrigated through the wound. Using a 4-0 nylon, 2 simple stitches were placed volarly and 2 simple stitches placed dorsally in the first webspace to reapproximate the skin edges. In the central portion of the wound there is skin loss measuring about 5 mm. A Criss drain was placed in the wound between the stitches. A sterile dressing was applied. The instrument, sponge, and needle counts were correct after wound closure. POST OPERATIVE PLAN: Weight Bearing: Weightbearing as tolerated through the palm of the left hand DVT Prophylaxis: Ambulation Activity: Avoid aggressive activities with the left upper extremity. Wound Care: Daily dressing and packing changes Perioperative antibiotic prophylaxis: Per ID Follow Up: 1 week after discharge for wound evaluation.
--- NOTE | 2017-03-01 17:13 | Orthopedics Progress Note ---
Date of Encounter: 03/01/17 Time of Encounter: 17:10 - Assessment and Plan (1) Flexor tenosynovitis of thumb Current Visit: Yes Status: Acute Subjective Interval history: S: Seen in the PACU. Drowsy. Pain controlled. O: Afebrile and his vital signs are stable. Dressing is clean, dry, and intact. The patient can actively flex and extend all digits, extend the thumb, cross the index and long fingers, make an okay sign, and oppose the thumb. The fingertips are all grossly sensate and well-perfused. OR cultures are presumptively growing streptococcus. A: Post I&D of the left thumb and web space, doing well P: Continue antibiotics per the ID team. Transition to oral this weekend. Elevation of the left upper extremity to decrease swelling Oral or IV anti-inflammatories per the primary team Will pull dajuan tomorrow, and anticipate discharge on oral Abx. Upon discharge, daily dressing changes, wet to dry. Follow up with me in the office in 1 week for a wound evaluation. Dr. Cordoba to round this weekend. Patient signed out. Objective Vital signs: Vital Signs Temp Pulse Resp BP Pulse Ox 03/01/17 17:00 95 12 125/89 99 03/01/17 16:50 86 12 130/92 95 03/01/17 16:40 97.5 F L 85 16 100/79 95 03/01/17 11:43 98.7 F 85 18 108/73 96 03/01/17 07:23 98.2 F 76 17 119/78 98 03/01/17 05:06 98.4 F 80 17 102/72 97 03/01/17 00:42 98.5 F 83 17 126/74 96 02/28/17 19:03 98.6 F 69 16 122/78 99 Intake and Output 03/01/17 03/01/17 03/01/17 07:59 15:59 23:59 Intake Total 100 / 100 100 / 100 Output Total Balance 100 / 100 100 / 100 -1 / -1 Intake: IV Fluids 100 / 100 100 / 100 Zosyn 3.375 GM In 100 / 100 100 / 100 Dextrose 5% (Minibag+) 100 ML 100 ML @ 25 mls/hr IVPB Q8HR [facility] Rx#: [id number] Output: Estimated Blood Loss Other: # Voids 1 - Labs CBC & BMP: 03/01/17 06:18 03/01/17 06:18 Labs: Abnormal lab results Neutrophils # 11.0 K/mcL (1.6-8.9) H 02/28/17 06:09 Monocytes # 1.7 K/mcL (0.0-1.3) H 02/28/17 06:09 Immature Plt Fraction 7.5 % (1.1-6.1) H 02/28/17 06:09 ESR 38 mm/hr (0-10) H 02/26/17 16:03 Potassium 4.9 mEq/L (3.5-4.5) H 03/01/17 06:18 Glucose 145 mg/dL (70-99) H 03/01/17 06:18 POC Glucose 118 (58-89) H 02/28/17 21:12 Calcium 8.5 mg/dL (8.6-10.8) L 03/01/17 06:18 C-Reactive Protein 54 mg/L (Less than 5) H 02/26/17 16:03 - VTE Documentation of Mechanical Device: Intermittent pneumatic compression device Consult Discharge Plan - Plan [facility]errals: [facility] [Primary Care Provider[facility] -
--- NOTE | 2017-03-01 17:21 | Anesthesia Evaluation Post Op ---
Date of Encounter: 03/01/17 Time of Encounter: 17:22 - Vital Signs Vital Signs: Vital Signs - Last 8 Hours Temp Pulse Resp BP Pulse Ox 03/01/17 17:10 97.5 F L 92 12 136/91 100 03/01/17 17:00 95 12 125/89 99 03/01/17 16:50 86 12 130/92 95 03/01/17 16:40 97.5 F L 85 16 100/79 95 03/01/17 11:43 98.7 F 85 18 108/73 96 Intake and Output 03/01/17 03/01/17 03/01/17 07:59 15:59 23:59 Intake Total 100 / 100 100 / 100 Output Total 1 / 1 Balance 100 / 100 100 / 100 -1 / -1 Intake: IV Fluids 100 / 100 100 / 100 Zosyn 3.375 GM In 100 / 100 100 / 100 Dextrose 5% (Minibag+) 100 ML 100 ML @ 25 mls/hr IVPB Q8HR [facility] Rx#: [id number] Output: Estimated Blood Loss Other: # Voids 1 - Lungs Lungs: Clear Ascult./Percussion - Airway Airway: Non-obstructed - Cardiovascular Regular Rate, Baseline Rhythm - Mental Status Mental Status: Alert & Oriented, Answers Appropriately - Pain Pain Scale: 5 (chronic pain ) Pain Scale used: Numeric (1 - 10) - Nausea Vomiting Nausea Vomiting: Not Present - Hydration Hydration: Tolerates oral liquids - Discharge PostOp Status: Transfer Patient to floor
[2017-03-02] MEDS: Piperacillin/Tazobactam 3.375 GM in D5% in Water (Mini-Bag+) 100 ML IVPB SCH ×3 (00:57→15:52)
[2017-03-02] MEDS: Ketorolac 30 MG/ML VIAL IVP PRN (00:57)
[2017-03-02] MEDS: *HR* OxyCODONE Immed Rel 5 MG TABLET PO PRN ×3 (03:27→18:24)
[2017-03-02 04:00] LABS: Basophils # 0.1 K/mcL (0.0-0.2); Basophils % 0.7 %; Eosinophils % 0.1 %; Hematocrit 37.2 % (37.5-50.1); Hemoglobin 12.5 g/dL (12.9-16.9); Immature Granulocytes % 3.9 % (0-4); Mean Corpuscular HGB Conc 33.6 g/dL (31.6-35.5); Mean Corpuscular Hemoglobin 30.8 pg (28.0-33.3); Mean Corpuscular Volume 91.6 fL (83.0-100.0); Mean Platelet Volume 10.9 fL (9.4-12.4); Monocytes # 0.9 K/mcL (0.0-1.3); Neutrophils # 9.1 K/mcL (1.6-8.9); Platelet Count 365 K/mcL (140-400); Red Blood Count 4.06 M/mcL (4.19-5.50); Red Cell Distribution Width 12.4 % (11.5-14.5); Segmented Neutrophils % 72.3 %
[2017-03-02 04:01] LABS: BUN/Creatinine Ratio 19 (6-26); Blood Urea Nitrogen 21 mg/dL (8-26); Calcium 8.4 mg/dL (8.6-10.8); Carbon Dioxide 24 mEq/L (19-29); Chloride 103 mEq/L (98-109); Glucose 226 mg/dL (70-99); Osmolality,Calculated 292 (280-300); Sodium 136 mEq/L (136-145); eGFR For African Americans > 60 (> 60); eGFR For Non-African Americans > 60 (> 60)
[2017-03-02 04:03] LABS: Potassium 5.1 mEq/L (3.5-4.5)
[2017-03-02] MEDS: *HR* HYDROmorphone (PF) 1 MG/ML SYRINGE IVP PRN ×2 (05:52→11:49)
[2017-03-02] MEDS: *HR* Heparin 5,000 UNIT/ML VIAL SQ SCH ×2 (06:15→18:24)
[2017-03-02] MEDS: Gabapentin 300 MG CAPSULE PO SCH ×3 (08:34→21:13)
[2017-03-02] MEDS: clonazePAM 0.5 MG TABLET PO SCH ×2 (08:34→21:12)
[2017-03-02] MEDS: amLODIPine 5 MG TABLET PO SCH (08:35)
[2017-03-02] MEDS: Methylphenidate HCl 10 MG TABLET PO SCH ×2 (08:35→11:50)
[2017-03-02] MEDS: Artificial Tears SOLN 15 ML BOTTLE BOTH EYES SCH ×3 (09:30→21:09)
--- NOTE | 2017-03-02 16:02 | Event Note ---
Date of Encounter: 03/02/17 Time of Encounter: 12:10 I have independently seen and examined this patient on 03/02/17, reviewed the EMR and discussed plan of care with the patient and resident physician 46 M with opiate dependence, Anxiety, ADHD, hxs of IVDA, admitted and being managed for L hand cellulitis with abscess and L tenosynovitis s/p I and D by ortho He had second look irrigation and debridement of Left thumb and webspace 03/01/17 He is seen at bedside today, requesting to be discharged We are waiting his final wound culture, and he will need wound care at [facility]. [place] and the transfer center will not be available after the holidays Physical exam: Diffuse papular rash on trunk-chronic per patient, obese, Chest is CTAB, L hand wound inspected. Large wound on the first Left hand web space with 2 sutures and a drain. Some granulation tissue visible, no active pus drainage Labs and Imaging reviewed: Leukocytosis recurred, WBC 12 today, K 5.1 Wound culture with GPC, presumed to be strep Plan is to continue Zosyn, follow final cultures, and re-assure patient, SW will be consulted for wound care at home. Agreeable to plan of care. D/C dilaudid Hyperkalemia: D/C Lisinopril,, start amlodipine for HTN, monitor Chem, Give kayexalate Rest of details as in resident's documentation.
--- NOTE | 2017-03-02 16:51 | Internal Med Progress Note ---
<Aundrea De La Garza - Last Filed: 03/02/17 16:48> Date of Encounter: 03/02/17 Time of Encounter: 11:10 - Assessment and plan (1) Sepsis Current Visit: Yes Status: Acute Assessment and plan: Patient has been afebrile for the last 24 hours and has had normotensive for the last 12 hours. Patient was hypotensive with multiple systolic pressures in the 90s overnight though. Patient has an identified source of infection which has been debrided and irrigated by Dr. Wallace 3 days ago but plans to reirrigate and possibly close today. Wound culture shows positive cocci. Vanco was stopped 03/01. Zosyn was continued. Awaiting sensitivities before being able to send home on oral medications. Plan: - Antibiotics: Zosyn - Cultures gram postive cocci, still awaiting sensitivities - Continue to monitor vitals - Dispo: Possible discharge home tomorrow if sensitivities come back and orthopedics agree. Still waiting to see their recommendations. Qualifiers: Sepsis type: sepsis due to unspecified organism Qualified Code(s): A41.9 - Sepsis, unspecified organism (2) Cellulitis of hand Current Visit: Yes Status: Acute Assessment and plan: CT scan showed cellulitis of the left inner webbing of the first digit over area of laceration Patient s/p day 4 of initial debridement, irrigation, and packing with Dr. Wallace from [facility]. Irrigation and closure 03/01. Last tetanus was 2012. Plan: - Antibiotics: Zosyn, - d/c Vanco 03/01 - Orthopedics following and awaiting recommendations for d/c for wound care - Wound culture positive cocci - daily dressing changes - Oxycodone 5mg Q6H for pain - home Methadone is held due to being on Oxycodone (3) Flexor tenosynovitis of thumb Current Visit: Yes Status: Acute Assessment and plan: See cellulitis of hand comments above. (4) Hypothyroidism Current Visit: Yes Status: Chronic Assessment and plan: No current symptoms. Continue on home medication of Synthroid 50 mg by mouth daily. Qualifiers: Qualified Code(s): E03.9 - Hypothyroidism, unspecified (5) Anxiety and depression Current Visit: Yes Status: Chronic Assessment and plan: Continue on home dose of Buspirone and Paxil. (6) ADHD Current Visit: Yes Status: Chronic Assessment and plan: Continue on home dose of Ritalin Qualifiers: Qualified Code(s): F90.9 - Attention-deficit hyperactivity disorder, unspecified type (7) HTN (hypertension) Current Visit: Yes Status: Acute Assessment and plan: Continue on home dose of lisinopril and simvastatin Qualifiers: Hypertension type: unspecified Qualified Code(s): I10 - Essential (primary ) hypertension (8) DVT prophylaxis Current Visit: Yes Status: Acute Assessment and plan: IPCD and Heparin (9) GERD (gastroesophageal reflux disease) Current Visit: Yes Status: Chronic Assessment and plan: Continue on home dose of omeprazole. Qualifiers: Esophagitis presence: without esophagitis Qualified Code(s): K21.9 - Gastro -esophageal reflux disease without esophagitis - Subjective Interval history: Aj is a 38-year-old male presented to the ED for left hand laceration and was found to have cellulitis of the webbing of his first digit was admitted for debridement and irrigation and is status post initial debridement day 4 and s/p loose closure and second irrigation day 1. Pain and tenderness over effected area has decreased. Patient is doing well and desires to leave. He told me this morning that he really wants to leave but won't doing anything stupid such as leaving AMA. Patient denies chest pain, shortness of breath. - Constitutional Vitals: Temp Pulse Resp BP Pulse Ox 98.4 F 101 20 135/93 99 03/02/17 15:44 03/02/17 15:44 03/02/17 15:44 03/02/17 15:44 03/02/17 15:44 General appearance: Present: A&O X 3, no acute distress, answers questions appropriately Exam: Constitutional: Alert, in no acute distress, well nourished, well developed. Head: Normocephalic, atraumatic, normal contour and symmetric, no masses, lesions or scars Heart: regular rate and rhythm, no murmurs Lungs: Clear to auscultation, no wheezes, rales, or rhonchi Abdomen: Soft, nondistended, nontender, and no masses palpable, bowel sounds present and normal, no guarding or rigidity. Extremities: L first digit wound in the interdigit web on volar and ulnar aspect of thumb with clean dressing. sensation intact of all fingers and able to extend and flex all digits and make the "OK" sign with his thumb and second digit, capillary refill less than 2 seconds at distal aspect of 1st and second digit, redness and swelling of first and second digit decreased from yesterday, tenderness at thenar eminence decreased, absent streaking on forearm, no cyanosis, radial pulse +2/4, no clubbing Skin: Multiple ulcers in different stages along trunk and lower extremities lesions are without drainage of pus and are healing well, Skin warm and dry, no jaundice Neurologic: Cranial nerves II through XII grossly intact, no focal deficits, strength within normal limits in all extremities Psych: Cooperative with exam, good eye contact, cognitive function intact, judgment good insight good, speech clear, thought process logical, and goal directed Internal Medicine: Result - Labs CBC & Chem 7: 03/02/17 03:20 03/02/17 03:20 Labs: Short CBC 03/02/17 Range/Units 03:20 WBC 12.7 H (4.3-11.1) K/mcL Hgb 12.5 L (12.9-16.9) g/dL Hct 37.2 L (37.5-50.1) % Plt Count 365 (140-400) K/mcL Neutrophils # 9.1 H (1.6-8.9) K/mcL BMP 03/02/17 03:20 Sodium 136 Potassium 5.1 H Chloride 103 Carbon Dioxide 24 BUN 21 Creatinine 1.11 Glucose 226 H Calcium 8.4 L - VTE Documentation of Mechanical Device: Intermittent pneumatic compression device Consult Discharge Plan - Plan [facility]errals: [facility] [Primary Care Provider] - <Ryder Nuñez - Last Filed: 03/02/17 17:50> Date of Encounter: 03/02/17 - Constitutional Vitals: Temp Pulse Resp BP Pulse Ox 98.4 F 101 20 135/93 99 03/02/17 15:44 03/02/17 15:44 03/02/17 15:44 03/02/17 15:44 03/02/17 15:44 Internal Medicine: Result - Labs CBC & Chem 7: 03/02/17 03:20 03/02/17 03:20 Labs: Short CBC 03/02/17 Range/Units 03:20 WBC 12.7 H (4.3-11.1) K/mcL Hgb 12.5 L (12.9-16.9) g/dL Hct 37.2 L (37.5-50.1) % Plt Count 365 (140-400) K/mcL Neutrophils # 9.1 H (1.6-8.9) K/mcL BMP 03/02/17 03:20 Sodium 136 Potassium 5.1 H Chloride 103 Carbon Dioxide 24 BUN 21 Creatinine 1.11 Glucose 226 H Calcium 8.4 L - Attending Attestation See event note of same day, agree with plan
[2017-03-03] MEDS: Ketorolac 30 MG/ML VIAL IVP PRN (00:14)
[2017-03-03] MEDS: Piperacillin/Tazobactam 3.375 GM in D5% in Water (Mini-Bag+) 100 ML IVPB SCH ×3 (00:14→16:39)
[2017-03-03 01:46] LABS: Basophils # 0.2 K/mcL (0.0-0.2); Basophils % 1.1 %; Eosinophils # 0.1 K/mcL (0.0-0.6); Eosinophils % 0.8 %; Hematocrit 39.1 % (37.5-50.1); Hemoglobin 13.2 g/dL (12.9-16.9); Immature Granulocytes % 5.3 % (0-4); Lymphocytes % 32.9 %; Mean Corpuscular HGB Conc 33.8 g/dL (31.6-35.5); Mean Corpuscular Hemoglobin 31.4 pg (28.0-33.3); Mean Corpuscular Volume 92.9 fL (83.0-100.0); Mean Platelet Volume 10.2 fL (9.4-12.4); Monocytes % 10.8 %; Neutrophils # 7.5 K/mcL (1.6-8.9); Nucleated Red Blood Cells 0.2 /100 WBC (0); Platelet Count 385 K/mcL (140-400); Red Blood Count 4.21 M/mcL (4.19-5.50); Red Cell Distribution Width 12.7 % (11.5-14.5); Segmented Neutrophils % 49.1 %
[2017-03-03 01:47] LABS: Monocytes # 1.6 K/mcL (0.0-1.3)
[2017-03-03 02:03] LABS: BUN/Creatinine Ratio 19 (6-26); Blood Urea Nitrogen 23 mg/dL (8-26); Calcium 9.5 mg/dL (8.6-10.8); Carbon Dioxide 30 mEq/L (19-29); Chloride 102 mEq/L (98-109); Glucose 97 mg/dL (70-99); Osmolality,Calculated 294 (280-300); Potassium 4.2 mEq/L (3.5-4.5); Sodium 140 mEq/L (136-145); eGFR For African Americans > 60 (> 60); eGFR For Non-African Americans > 60 (> 60)
[2017-03-03 02:09] LABS: Platelet Estimate Normal (Normal)
[2017-03-03] MEDS: *HR* OxyCODONE Immed Rel 5 MG TABLET PO PRN ×3 (03:20→20:09)
[2017-03-03] MEDS: *HR* Heparin 5,000 UNIT/ML VIAL SQ SCH ×2 (05:43→18:37)
[2017-03-03] MEDS ORDERED: 0.9 % Sodium Chloride 1,000 ML IVC ONE (07:49)
[2017-03-03] MEDS: amLODIPine 5 MG TABLET PO SCH ×2 (08:08→12:38)
[2017-03-03] MEDS: Methylphenidate HCl 10 MG TABLET PO SCH ×2 (08:08→12:37)
[2017-03-03] MEDS: clonazePAM 0.5 MG TABLET PO SCH ×2 (08:08→20:08)
[2017-03-03] MEDS: Gabapentin 300 MG CAPSULE PO SCH ×3 (08:09→20:08)
--- NOTE | 2017-03-03 09:22 | Event Note ---
Date of Encounter: 03/03/17 Time of Encounter: 09:22 I have independently seen and examined this patient on 03/03/17, reviewed the EMR and discussed plan of care with the patient and resident physician 46 M with opiate dependence, Anxiety, ADHD, hxs of IVDA, admitted and being managed for L hand cellulitis with abscess and L tenosynovitis s/p I and D by ortho He had second look irrigation and debridement of Left thumb and webspace 03/01/17 He is seen at bedside today, no new complains He had refused his Norvasc yesterday, and has been refusing his Lisiopril since admission Wound culture done at [facility] on admission resulted today shows anerobic bacteria, streptococcus angionusus, and [facility] also showed few MSSA, pansensitive but not tested for cephalosporin, sensitive to oxacillin, doxycycline, tetracycline CBC with persistent leukocytosis Physical exam: Diffuse papular rash on trunk-chronic per patient, obese, Chest is CTAB, L hand wound inspected. Large wound on the first Left hand web space with 2 sutures and a drain. Some granulation tissue visible, no active pus drainage Labs and Imaging reviewed: Leukocytosis WBC 15 today, K normalized, Wound culture strep anginosus, [facility] states MSSA A/P *repeat wound culture STAT *Add doxycyline 100mg BID IV for MSSA coverage *Continue Zosyn IV at same dose *Ortho is following * for wound dressing /wound care when stable for discharge *[facility] for BP, patient is educated Rest of details as in resident's documentation.
[2017-03-03] MEDS: Artificial Tears SOLN 15 ML BOTTLE BOTH EYES SCH ×3 (09:32→20:09)
[2017-03-03] MEDS ORDERED: Doxycycline 100 MG CAPSULE PO SCH (13:00)
--- NOTE | 2017-03-03 13:28 | Internal Med Progress Note ---
<Aundrea De La Garza - Last Filed: 03/03/17 15:44> Date of Encounter: 03/03/17 Time of Encounter: 09:30 - Assessment and plan (1) Sepsis Current Visit: Yes Status: Acute Assessment and plan: Patient has been afebrile for the last 24 hours and has had normotensive for the last 12 hours. Patient was hypotensive with multiple systolic pressures in the 90s overnight though. Patient has an identified source of infection which has been debrided and irrigated by Dr. Wallace 3 days ago but plans to reirrigate and possibly close today. Wound Culture results showed strep anginosus and anerobic gram neg radha and anerobic positive cocci. Vanco was stopped 03/01. Zosyn was continued. Doxycycline added 03/03 as wound cultures from [place] showed MSSA and streptococcus group C sensitive to Doxycycline. [facility] susceptibility tests results show sensitivity to cefazolin, clindamycin, daptomycin, doxycycline, erythromycin, gentamicin, levofloxacin, the nasal lip, moxifloxacin, negative. Troponin, doxycycline, rifampin, tetracycline, Bactrim , Vanco. Awaiting sensitivities from [place]'s wound cultures. Today, WBC was elevated at 15.2 from 12.7. HR was elevated during the night at 101, 99. No fevers present. Patient's wound has increase yellow, pus expressed from the wound. Awaiting ortho's recommendations. Will continue on Zosyn and Doxy in the meantime. Plan: - Antibiotics: Zosyn and Doxycycline - Culture results showed strep anginosus and anerobic gram neg radha and anerobic positive cocci - Continue to monitor vitals - Qualifiers: Sepsis type: sepsis due to unspecified organism Qualified Code(s): A41.9 - Sepsis, unspecified organism (2) Cellulitis of hand Current Visit: Yes Status: Acute Assessment and plan: CT scan showed cellulitis of the left inner webbing of the first digit over area of laceration Patient s/p day 4 of initial debridement, irrigation, and packing with Dr. Wallace from [facility]. Irrigation and closure 03/01. Last tetanus was 2012. Plan: - Antibiotics: Zosyn, Doxycycline - d/c Vanco 03/01 - Orthopedics following and awaiting recommendations for d/c for wound care - Culture results showed strep anginosus and anerobic gram neg radha and anerobic positive coci - daily dressing changes - Oxycodone 5mg Q6H for pain - home Methadone is held due to being on Oxycodone (3) Flexor tenosynovitis of thumb Current Visit: Yes Status: Acute Assessment and plan: See cellulitis of hand comments above. (4) Hypothyroidism Current Visit: Yes Status: Chronic Assessment and plan: No current symptoms. Continue on home medication of Synthroid 50 mg by mouth daily. Qualifiers: Hypothyroidism type: unspecified Qualified Code(s): E03.9 - Hypothyroidism , unspecified (5) Anxiety and depression Current Visit: Yes Status: Chronic Assessment and plan: Continue on home dose of Buspirone and Paxil. (6) ADHD Current Visit: Yes Status: Chronic Assessment and plan: Continue on home dose of Ritalin Qualifiers: Attention deficit-hyperactivity disorder type: combined inattentive- hyperactive Qualified Code(s): F90.2 - Attention-deficit hyperactivity disorder, combined type (7) HTN (hypertension) Current Visit: Yes Status: Acute Assessment and plan: Continue on home dose of lisinopril and simvastatin Qualifiers: Hypertension type: unspecified Qualified Code(s): I10 - Essential (primary ) hypertension (8) DVT prophylaxis Current Visit: Yes Status: Acute Assessment and plan: IPCD and Heparin (9) GERD (gastroesophageal reflux disease) Current Visit: Yes Status: Chronic Assessment and plan: Continue on home dose of omeprazole. Qualifiers: Esophagitis presence: without esophagitis Qualified Code(s): K21.9 - Gastro -esophageal reflux disease without esophagitis - Subjective Interval history: Aj is a 38-year-old male presented to the ED for left hand laceration and was found to have cellulitis of the webbing of his first digit was admitted for debridement and irrigation and is status post initial debridement day 5 and s/p loose closure and second irrigation day 2. Pain and tenderness over effected area has decreased. Patient is doing well this morning but still desires to leave and again repeated to me "I don't want to do anything stupid like leaving AMA" but [facility] I discussed with patient that even if we sent him over he would need to sent back over here to see orthopedic, so he has agreed to stay. Patient denies chest pain, shortness of breath. - Constitutional Vitals: Temp Pulse Resp BP Pulse Ox 98.6 F 93 15 142/98 96 03/03/17 10:51 03/03/17 10:51 03/03/17 10:51 03/03/17 10:51 03/03/17 10:51 General appearance: Present: A&O X 3, no acute distress, answers questions appropriately Exam: Constitutional: Alert, in no acute distress, well nourished, well developed. Head: Normocephalic, atraumatic, normal contour and symmetric, no masses, lesions or scars Heart: regular rate and rhythm, no murmurs Lungs: Clear to auscultation, no wheezes, rales, or rhonchi Abdomen: Soft, nondistended, nontender, and no masses palpable, bowel sounds present and normal, no guarding or rigidity. Extremities: L first digit wound in the interdigit web on volar and ulnar aspect of thumb with yellow pus on bandage increased from previously, sensation intact of all fingers and able to extend and flex all digits and make the "OK" sign with his thumb and second digit, capillary refill less than 2 seconds at distal aspect of 1st and second digit, redness and swelling of first and second digit decreased from yesterday, tenderness at thenar eminence decreased, absent streaking on forearm, no cyanosis, radial pulse +2/4, no clubbing Skin: Multiple ulcers in different stages along trunk and lower extremities lesions are without drainage of pus and are healing well, Skin warm and dry, no jaundice Neurologic: Cranial nerves II through XII grossly intact, no focal deficits, strength within normal limits in all extremities Psych: Cooperative with exam, good eye contact, cognitive function intact, judgment good insight good, speech clear, thought process logical, and goal directed Internal Medicine: Result - Labs CBC & Chem 7: 03/03/17 14:09 03/03/17 14:09 Labs: Short CBC 03/03/17 Range/Units 01:20 WBC 15.2 H (4.3-11.1) K/mcL Hgb 13.2 (12.9-16.9) g/dL Hct 39.1 (37.5-50.1) % Plt Count 385 (140-400) K/mcL Neutrophils # 7.5 (1.6-8.9) K/mcL BMP 03/03/17 01:20 Sodium 140 Potassium 4.2 Chloride 102 Carbon Dioxide 30 H BUN 23 Creatinine 1.18 Glucose 97 Calcium 9.5 - VTE Documentation of Mechanical Device: Intermittent pneumatic compression device Consult Discharge Plan - Plan Referrals: [facility] [Primary Care Provider] - <Ryder Nuñez T - Last Filed: 03/03/17 16:53> Date of Encounter: 03/03/17 - Constitutional Vitals: Temp Pulse Resp BP Pulse Ox 98.4 F 114 17 147/84 97 03/03/17 14:57 03/03/17 14:57 03/03/17 14:57 03/03/17 14:57 03/03/17 14:57 Internal Medicine: Result - Labs CBC & Chem 7: 03/03/17 14:09 03/03/17 14:09 Labs: Short CBC 03/03/17 03/03/17 Range/Units 01:20 14:09 WBC 15.2 H 13.3 H (4.3-11.1) K/mcL Hgb 13.2 13.2 (12.9-16.9) g/dL Hct 39.1 39.8 (37.5-50.1) % Plt Count 385 387 (140-400) K/mcL Neutrophils # 7.5 6.7 (1.6-8.9) K/mcL [facility] 03/03/17 03/03/17 01:20 14:09 Sodium 140 142 Potassium 4.2 4.0 Chloride 102 105 Carbon Dioxide 30 H 28 BUN 23 22 Creatinine 1.18 1.16 Glucose 97 109 H Calcium 9.5 9.4 - Attending Attestation Agree with plan, see event note of same day
[2017-03-03 14:28] LABS: Hematocrit 39.8 % (37.5-50.1); Hemoglobin 13.2 g/dL (12.9-16.9); Mean Corpuscular HGB Conc 33.2 g/dL (31.6-35.5); Mean Corpuscular Hemoglobin 30.7 pg (28.0-33.3); Mean Corpuscular Volume 92.6 fL (83.0-100.0); Mean Platelet Volume 9.8 fL (9.4-12.4); Platelet Count 387 K/mcL (140-400); Red Cell Distribution Width 12.9 % (11.5-14.5)
[2017-03-03 14:40] LABS: BUN/Creatinine Ratio 19 (6-26); Blood Urea Nitrogen 22 mg/dL (8-26); Calcium 9.4 mg/dL (8.6-10.8); Carbon Dioxide 28 mEq/L (19-29); Chloride 105 mEq/L (98-109); Glucose 109 mg/dL (70-99); Osmolality,Calculated 298 (280-300); Sodium 142 mEq/L (136-145); eGFR For African Americans > 60 (> 60); eGFR For Non-African Americans > 60 (> 60)
[2017-03-03 14:46] LABS: Eosinophils # 0.3 K/mcL (0.0-0.6); Lymphocytes # 5.2 K/mcL (0.6-4.6); Monocytes # 1.2 K/mcL (0.0-1.3); Neutrophils # 6.7 K/mcL (1.6-8.9); Platelet Estimate Normal (Normal)
[2017-03-03 14:47] LABS: Reactive Lymphocytes Present (Not Present)
[2017-03-03] MEDS: Doxycycline 100 MG in 0.9 % Sodium Chloride Mini Bag 100 ML IVPB SCH (18:37)
[2017-03-04] MEDS: Piperacillin/Tazobactam 3.375 GM in D5% in Water (Mini-Bag+) 100 ML IVPB SCH ×2 (00:35→07:29)
[2017-03-04] MEDS: *HR* OxyCODONE Immed Rel 5 MG TABLET PO PRN ×2 (03:04→09:38)
[2017-03-04] MEDS: *HR* Heparin 5,000 UNIT/ML VIAL SQ SCH (06:19)
[2017-03-04] MEDS: Doxycycline 100 MG in 0.9 % Sodium Chloride Mini Bag 100 ML IVPB SCH (06:20)
[2017-03-04 06:32] LABS: Basophils # 0.2 K/mcL (0.0-0.2); Basophils % 1.3 %; Eosinophils # 0.3 K/mcL (0.0-0.6); Eosinophils % 2.3 %; Hematocrit 39.7 % (37.5-50.1); Hemoglobin 13.3 g/dL (12.9-16.9); Immature Granulocytes % 4.4 % (0-4); Lymphocytes # 4.7 K/mcL (0.6-4.6); Lymphocytes % 32.5 %; Mean Corpuscular HGB Conc 33.5 g/dL (31.6-35.5); Mean Corpuscular Hemoglobin 31.2 pg (28.0-33.3); Mean Corpuscular Volume 93.2 fL (83.0-100.0); Mean Platelet Volume 10.1 fL (9.4-12.4); Monocytes # 1.6 K/mcL (0.0-1.3); Platelet Count 402 K/mcL (140-400); Red Blood Count 4.26 M/mcL (4.19-5.50); Segmented Neutrophils % 48.5 %
[2017-03-04 06:36] LABS: BUN/Creatinine Ratio 16 (6-26); Blood Urea Nitrogen 18 mg/dL (8-26); Calcium 9.8 mg/dL (8.6-10.8); Carbon Dioxide 28 mEq/L (19-29); Chloride 101 mEq/L (98-109); Glucose 99 mg/dL (70-99); Osmolality,Calculated 292 (280-300); Potassium 4.4 mEq/L (3.5-4.5); Sodium 140 mEq/L (136-145); eGFR For African Americans > 60 (> 60); eGFR For Non-African Americans > 60 (> 60)
[2017-03-04] MEDS: amLODIPine 5 MG TABLET PO SCH ×2 (09:02→09:05)
[2017-03-04] MEDS: Artificial Tears SOLN 15 ML BOTTLE BOTH EYES SCH (09:03)
[2017-03-04] MEDS: Methylphenidate HCl 10 MG TABLET PO SCH ×2 (09:05→11:46)
[2017-03-04] MEDS: clonazePAM 0.5 MG TABLET PO SCH (09:05)
[2017-03-04] MEDS: Gabapentin 300 MG CAPSULE PO SCH (09:06)
[2017-03-04 10:41] VITALS: BP 136/87
[2017-03-04] MEDS ORDERED: Doxycycline 100 MG CAPSULE PO SCH (11:30)
--- NOTE | 2017-03-04 11:36 | Internal Med Progress Note ---
Date of Encounter: 03/04/17 - Assessment and plan (1) Sepsis Current Visit: Yes Status: Acute Qualifiers: Sepsis type: sepsis due to unspecified organism Qualified Code(s): A41.9 - Sepsis, unspecified organism (2) Cellulitis of hand Current Visit: Yes Status: Acute (3) Flexor tenosynovitis of thumb Current Visit: Yes Status: Acute (4) Hypothyroidism Current Visit: Yes Status: Chronic Qualifiers: Hypothyroidism type: unspecified Qualified Code(s): E03.9 - Hypothyroidism , unspecified (5) Anxiety and depression Current Visit: Yes Status: Chronic (6) ADHD Current Visit: Yes Status: Chronic Qualifiers: Attention deficit-hyperactivity disorder type: combined inattentive- hyperactive Qualified Code(s): F90.2 - Attention-deficit hyperactivity disorder, combined type (7) HTN (hypertension) Current Visit: Yes Status: Acute Qualifiers: Hypertension type: unspecified Qualified Code(s): I10 - Essential (primary ) hypertension (8) DVT prophylaxis Current Visit: Yes Status: Acute (9) GERD (gastroesophageal reflux disease) Current Visit: Yes Status: Chronic Qualifiers: Esophagitis presence: without esophagitis Qualified Code(s): K21.9 - Gastro -esophageal reflux disease without esophagitis - Subjective Interval history: Aj is a 38-year-old male presented to the ED for left hand laceration and was found to have cellulitis of the webbing of his first digit was admitted for debridement and irrigation and is status post initial debridement day 5 and s/p loose closure and second irrigation day 2. Pain and tenderness over effected area has decreased. Patient does not want to receive IV antibiotics anymore. He wants to be transferred to the [facility]. Patient denies chest pain, shortness of breath. - Constitutional Vitals: Temp Pulse Resp BP Pulse Ox 98.9 F 109 18 136/87 97 03/04/17 10:40 03/04/17 10:40 03/04/17 10:40 03/04/17 10:40 03/04/17 10:40 General appearance: Present: A&O X 3, no acute distress, answers questions appropriately Internal Medicine: Result - Labs CBC & Chem 7: 03/04/17 05:26 03/04/17 05:26 Labs: Short CBC 03/03/17 03/04/17 Range/Units 14:09 05:26 WBC 13.3 H 14.5 H (4.3-11.1) K/mcL Hgb 13.2 13.3 (12.9-16.9) g/dL Hct 39.8 39.7 (37.5-50.1) % Plt Count 387 402 H (140-400) K/mcL Neutrophils # 6.7 7.0 (1.6-8.9) K/mcL BMP 03/03/17 03/04/17 14:09 05:26 Sodium 142 140 Potassium 4.0 4.4 Chloride 105 101 Carbon Dioxide 28 28 BUN 22 18 Creatinine 1.16 1.15 Glucose 109 H 99 Calcium 9.4 9.8 - VTE Documentation of Mechanical Device: Intermittent pneumatic compression device Consult Discharge Plan - Plan [facility] Care Provider[facility] -
--- NOTE | 2017-03-04 12:33 | Discharge Summary ---
<Ryder Nuñez T - Last Filed: 03/04/17 15:24> Date of Encounter: 03/04/17 - Discharge Medications Prescriptions: OxyCODONE Immed Rel [Roxicodone 5 MG] 5 mg PO Q6HR PRN #2 tab PRN Reason: Moderate Pain Home Medications: Buspirone HCl [Buspar] 15 mg PO TID 02/26/17 [History] Carboxymethylcellulose Sodium [Refresh Liquigel] 1 drop BOTH EYES TID 02/26/17 [ History] Chlorhex Gl/Glycerin/He-Cell [Lubricating Jelly] 6 gm TP AD 02/26/17 [History] Gabapentin [Neurontin] 900 mg PO TID 02/26/17 [History] Levothyroxine [Synthroid] 50 mcg PO 0630 02/26/17 [History] Lidocaine/Prilocaine CREAM [Emla] 1 appl TP QID PRN 02/26/17 [History] Methylphenidate HCl [Ritalin] 10 mg PO 1200 02/26/17 [History] Methylphenidate HCl [Ritalin] 20 mg PO QAM 02/26/17 [History] Montelukast [Singulair] 10 mg PO DAILY 02/26/17 [History] Mupirocin [Bactroban Oint] 1 appl TP TID 02/26/17 [History] Naproxen [Naprosyn] 500 mg PO BID PRN 02/26/17 [History] Lee/Poly/DEX Opth OINT [Maxitrol OPTH Oint] 1 appl OP AD 02/26/17 [History] Omeprazole [PriLOSEC] 40 mg PO DAILY 02/26/17 [History] Paroxetine [Paxil] 60 mg PO QAM 02/26/17 [History] Pravastatin Sodium [Pravachol] 40 mg PO HS 02/26/17 [History] Selenium Sulfide 1 appl TP DAILY 02/26/17 [History] Sildenafil Citrate [Viagra] 50 mg PO AD PRN 02/26/17 [History] Triamcinolone Acet 0.1% OINT [Kenalog] 1 appl TP BID PRN 02/26/17 [History] clonazePAM [Klonopin] 0.5 mg PO BID 02/26/17 [History] Amoxicillin/Clavulanate [Augmentin] 875 mg PO BIDWM #0 tab 03/04/17 [Rx] Doxycycline 100 mg PO BID 03/04/17 [Rx] OxyCODONE Immed Rel [Roxicodone 5 MG] 5 mg PO Q6HR PRN #2 tab 03/04/17 [Rx] amLODIPine [Norvasc] 10 mg PO DAILY tab 03/04/17 [Rx] Allergies/Adverse Reactions: 3 Allergy/AdvReac Type Severity Reaction Status Date / Time buprenorphine Allergy See Verified 02/28/17 21:19 Comments bupropion [From Wellbutrin] Allergy Hives Verified 02/26/17 15:36 Oxycodone Allergy Hives Verified 02/27/17 12:27 tramadol Allergy Hives Verified 02/26/17 15:36 Date of admission: 02/26/17 18:52 [facility] care physician: [facility] Consults: 03/03/17 07:54 Consult to Clerk General Office [CONS] Routine Reason for SW Consult: wound care and return to [facility] - Patient Status Disposition: Transfer Short-Term Hosp Condition: Good - Discharge Instructions Instructions: Cellulitis ([facility]) Follow Up With: [facility] [Primary Care Provider] - Sascha Richardson MD [Partnered Physician] - (Web request made) Additional Instructions: Keep dressing CDI Elevate extremity Take medications as prescribed Go to scheduled follow-up appointment Follow-up with surgery in 1 week. Hospital course: Mr. Moraes is a 46 year old male - Time Spent with Patient Total time spent providing and/or coordinating discharge services: - Constitutional Vitals: Temp Pulse Resp BP Pulse Ox 98.9 F 109 18 136/87 97 03/04/17 10:40 03/04/17 10:40 03/04/17 10:40 03/04/17 10:40 03/04/17 10:40 - Attending Attestation I have independently seen and examined this patient on 03/04/17, reviewed the EMR and discussed plan of care with the patient and resident physician 46 M with opiate dependence, Anxiety, ADHD, hxs of IVDA, admitted and being managed for L hand cellulitis with abscess and L tenosynovitis s/p I and D by ortho He had second look irrigation and debridement of Left thumb and webspace 03/01/17 He is seen at bedside today,refusing any form of IV access, refusing IV antibiotics and insisting on oral antibioics only. he has also been exhibiting manic behaviour and beng vulgar with staff, entering other patient's room during evaluation. [facility] grew MSSA, pansensitive but not tested for cephalosporin, sensitive to oxacillin, doxycycline, tetracycline, wound culture from here grew Stre angionusus and prevotella melaninogenica. We repeated a wound culture 03/03/17 which is pending Patient has leuocytosis but is not septic He continues to take off his dressing and poke at his Left hand web space wound. SW on board today and [facility] transfer has been scheduled. We will discharge him as he [facility] the [facility] to continue doxycycline and Augmentin for at least 14 days with follow up with orthopedics for wound revision within a week. I discussed with [facility] physician Dr. Núñez about patient's results, care and discharge recommendations Continue to hold methadone till patient follows up with his pain specialist He is a high risk for readmission Rest of details as in resident physician's documentation <Aundrea De La Garza - Last Filed: 03/04/17 18:35> Date of Encounter: 03/04/17 Time of Encounter: 08:45 - Discharge Diagnosis (1) Sepsis Priority: Primary Status: Acute Qualifiers: Sepsis type: sepsis due to unspecified organism Qualified Code(s): A41.9 - Sepsis, unspecified organism (2) Cellulitis of hand Priority: Primary Status: Acute (3) Flexor tenosynovitis of thumb Priority: Primary Status: Acute (4) Hypothyroidism Priority: Secondary Status: Chronic Qualifiers: Hypothyroidism type: unspecified Qualified Code(s): E03.9 - Hypothyroidism , unspecified (5) Anxiety and depression Priority: Secondary Status: Chronic (6) ADHD Priority: Secondary Status: Chronic Qualifiers: Attention deficit-hyperactivity disorder type: combined inattentive- hyperactive Qualified Code(s): F90.2 - Attention-deficit hyperactivity disorder, combined type (7) HTN (hypertension) Priority: Secondary Status: Acute Qualifiers: Hypertension type: unspecified Qualified Code(s): I10 - Essential (primary ) hypertension (8) DVT prophylaxis Priority: Secondary Status: Acute (9) GERD (gastroesophageal reflux disease) Priority: Secondary Status: Chronic Qualifiers: Esophagitis presence: without esophagitis Qualified Code(s): K21.9 - Gastro -esophageal reflux disease without esophagitis Date of admission: 02/26/17 18:52 Primary care physician: PCP [facility] Consults: 03/03/17 07:54 Consult to Clerk General Office [CONS] Routine Reason for Consult: wound care and return to [facility] - Patient Status Functional capacity at discharge: independent ambulation Overall status at discharge: patient is progressing back to baseline - Diet and Activity Activity: increase activity as tolerated Diet: advance to your usual diet Hospital course: Mr. Moraes is a 46 year old male who presented to the [facility] with a laceration in the webbing between his first and second digit for four days. atient was a direct admit from the for orthopedic debridement. Patient's wound was debrided on 02/26 with repeat irrigation and wound closure on 02/28. Patient was initially started on Vancomycin and Zosyn. Vancomycin was d/c as [facility] culture showed MSSA suseptible to Doxycycline. Doxycycline started on 03/03. Culture results from surgery showed streptococcus anginosus, prevotella melaninogenica, anaerobic gram positive cocci (still preliminary). WBC trending down and patient has been afebrile entire hospital stay. Patient given Doxycycline and Augmentin for 14 days and transferred to the [facility] as patient was requesting transfer back to the [facility] for mental health support. Patient instructed to f/u with orthopedics in 1 week. Of note, patient had hyperkalemia and home lisinopril was d/c and Norvasc 10mg PO QD started. - Time Spent with Patient Total time spent providing and/or coordinating discharge services: - Constitutional Vitals: Temp Pulse Resp BP Pulse Ox 98.9 F 109 18 136/87 97 03/04/17 10:40 03/04/17 10:40 03/04/17 10:40 03/04/17 10:40 03/04/17 10:40 General appearance: Present: A&O X 3, no acute distress, answers questions appropriately - VTE Documentation of Mechanical Device: Intermittent pneumatic compression device
--- NOTE | 2017-03-04 12:47 | Physician Discharge Referral ---
ExtendedCare Referral Info Transfer To: SNF Provider in Charge after Transfer: PCP Institutional Level of Care: Skilled - Diagnosis (1) Sepsis Priority: Primary Status: Acute (2) Cellulitis of hand Priority: Primary Status: Acute (3) Flexor tenosynovitis of thumb Priority: Primary Status: Acute (4) Hypothyroidism Priority: Secondary Status: Chronic (5) Anxiety and depression Priority: Secondary Status: Chronic (6) ADHD Priority: Secondary Status: Chronic (7) HTN (hypertension) Priority: Secondary Status: Acute (8) GERD (gastroesophageal reflux disease) Priority: Secondary Status: Chronic - Transfer Medications Prescriptions: OxyCODONE Immed Rel [Roxicodone 5 MG] 5 mg PO Q6HR PRN #2 tab PRN Reason: Moderate Pain Home Medications: Buspirone HCl [Buspar] 15 mg PO TID 02/26/17 [History] Carboxymethylcellulose Sodium [Refresh Liquigel] 1 drop BOTH EYES TID 02/26/17 [ History] Chlorhex Gl/Glycerin/He-Cell [Lubricating Jelly] 6 gm TP AD 02/26/17 [History] Gabapentin [Neurontin] 900 mg PO TID 02/26/17 [History] Levothyroxine [Synthroid] 50 mcg PO 0630 02/26/17 [History] Lidocaine/Prilocaine CREAM [Emla] 1 appl TP QID PRN 02/26/17 [History] Methylphenidate HCl [Ritalin] 10 mg PO 1200 02/26/17 [History] Methylphenidate HCl [Ritalin] 20 mg PO QAM 02/26/17 [History] Montelukast [Singulair] 10 mg PO DAILY 02/26/17 [History] Mupirocin [Bactroban Oint] 1 appl TP TID 02/26/17 [History] Naproxen [Naprosyn] 500 mg PO BID PRN 02/26/17 [History] Lee/Poly/DEX Opth OINT [Maxitrol OPTH Oint] 1 appl OP AD 02/26/17 [History] Omeprazole [PriLOSEC] 40 mg PO DAILY 02/26/17 [History] Paroxetine [Paxil] 60 mg PO QAM 02/26/17 [History] Pravastatin Sodium [Pravachol] 40 mg PO HS 02/26/17 [History] Selenium Sulfide 1 appl TP DAILY 02/26/17 [History] Sildenafil Citrate [Viagra] 50 mg PO AD PRN 02/26/17 [History] Triamcinolone Acet 0.1% OINT [Kenalog] 1 appl TP BID PRN 02/26/17 [History] clonazePAM [Klonopin] 0.5 mg PO BID 02/26/17 [History] Amoxicillin/Clavulanate [Augmentin] 875 mg PO BIDWM #0 tab 03/04/17 [Rx] Doxycycline 100 mg PO BID 03/04/17 [Rx] OxyCODONE Immed Rel [Roxicodone 5 MG] 5 mg PO Q6HR PRN #2 tab 03/04/17 [Rx] amLODIPine [Norvasc] 10 mg PO DAILY tab 03/04/17 [Rx] Allergies/Adverse Reactions: 3 Allergy/AdvReac Type Severity Reaction Status Date / Time buprenorphine Allergy See Verified 02/28/17 21:19 Comments bupropion [From Wellbutrin] Allergy Hives Verified 02/26/17 15:36 Oxycodone Allergy Hives Verified 02/27/17 12:27 tramadol Allergy Hives Verified 02/26/17 15:36 - Respiratory Orders Smoking Cessation: Smoking cessation has been advised. For more information, call the [place] Tobacco Quit Line at 7-832-YKHU-NOW. - Lab Orders Lab Orders: CBC (lab draws to be sent to PCP) - Ancillary Orders May use pressure relief devices daily prn - Advance Directives Code Status: Full Code - Rehabiliation Orders Rehab Potential: Good Rehab Orders: Evaluation for Physical Therapy, Evaluation for Occupational Therapy - Treatments Skin tear care topically daily PRN per policy, May check for fecal impaction rectally daily PRN, Fleet enema rectally every other day PRN cleansing purposes List/Other: Wound care for site of injury. daily dressing changes - Diet Orders Regular CERTIFICATION: I certify that the transfer of the above named patient to an Extended Care Facility is necessary for the continuing treatment of the diagnosis listed. The above information is true and accurate reflection of patient's current condition. Confidential - Redisclosure prohibited without a patient's written consent.
== END 2017-03-04 12:51 | DRG 854 ==
LOC: EMEROO 15:27 → 3NENU 18:52 → SUATTDRO 18:52 → 3NENU 19:26
PROVIDERS: ADMIT Internal Medicine; ATTEND Internal Medicine